=== PATIENT | female | born 1935 | race Caucasian/White ===

== ENCOUNTER → 2016-10-05 | Outpatient (CLI) | payer MEDICARE ==
--- NOTE | 2016-10-05 13:34 | XR ---
EXAMINATION TYPE: XR hand complete RT DATE OF EXAM: 10/05/2016 CLINICAL HISTORY: pain TECHNIQUE: Frontal, lateral and oblique images of the right hand are obtained. COMPARISON: None. FINDINGS: There is no acute fracture/dislocation evident. The joint spaces appear mildly narrowed. T he overlying soft tissue appears unremarkable. Healed fractures of the distal radius and ulnar styloi d process. IMPRESSION: There is no acute fracture or dislocation ICD 10 NO FRACTURE, INITIAL EVALUATION
--- NOTE | 2016-10-05 14:03 | CT ---
EXAMINATION TYPE: CT tmj maxillofacial wo con DATE OF EXAM: 10/05/2016 COMPARISON: NONE HISTORY: Rt TMJ pain CT DLP: 234.4 mGycm Automated exposure control for dose reduction was used. Unenhanced CT of the TMJs was performed with bone and soft tissue window settings. Images were obtain ed during open and closed mouth maneuvers. FINDINGS: Right TMJ: There is subchondral cystic degenerative change involving the mandibular condyle with mild spurring seen as well. There is normal positioning of the mandibular condyle within the mandibular fossa at closed mouth positioning. Upon open-mouth positioning there is a normal appearing anterior t ranslation of the mandibular condyle in the region of the articular eminence however there is evidenc e for narrowing and spurring. The disc is poorly visualized and I suspect underlying disc pathology. Left TMJ: No evidence for significant degenerative changes at this time. No evidence for osseous lesi on or spurring. The disc appears to be well positioned at both open and closed mouth views. Normal tr anslation of the mandibular condyle upon opening mouth view. IMPRESSION: 1. OSTEOARTHRITIS WITH SUBCHONDRAL CYST FORMATION AND SPURRING INVOLVING THE RIGHT MANDIBULAR CONDYLE WITH A POORLY VISUALIZED DISC SUSPICIOUS FOR UNDERLYING DISC PATHOLOGY.
== END | disposition home or self-care (01) ==
LOC: RADXRMAIN 10:16
PROVIDERS: ATTEND Family Medicine
DX: M26.69 Other specified disorders of temporomandibular joint (principal); M79.641 Pain in right hand
CPT/HCPCS: 70486

== ENCOUNTER 2018-01-22 11:24 | Emergency (ER) | payer MEDICARE, OTHER ==
[2018-01-22 11:30] VITALS: PULSE 84; TEMP 98
--- NOTE | 2018-01-22 11:52 | ED ---
General Adult HPI - General Chief complaint: Extremity Injury, Lower Stated complaint: IHS-Leg Pain Source: patient Mode of arrival: ambulatory Limitations: no limitations - History of Present Illness Initial comments: Dictation was produced using [employer] dictation software. please excuse any grammatical, word or spelling errors. Chief Complaint: 82-year-old female past medical history of hypertension presents with left knee pain status post fall. History of Present Illness: Is a 82-year-old female who presents after fall. Patient fell yesterday. She tripped over something causing her to fall onto her left side. She states she landed on her hip. Denies any head trauma. No loss of consciousness. Patient has history of right knee total joint replacement. Patient is able to bear weight however has difficulty walking. The ROS documented in this emergency department record has been reviewed and confirmed by me. Those systems with pertinent positive or negative responses have been documented in the HPI. All other systems are other negative and/or noncontributory. - Related Data Home Medications Medication Instructions Recorded Confirmed Benazepril HCl 40 mg PO DAILY 11/26/16 12/01/16 Calcium Magnesium D3 Liq 1 oz PO DAILY 11/26/16 12/01/16 Glucosam/Juan-Msm1/C/Ron/Bosw 1 each PO DAILY 11/26/16 12/01/16 [Glucosamine-Chondroitin Tablet] amLODIPine BESYLATE [Norvasc] 5 mg PO QAM 11/26/16 12/01/16 Previous Rx's Medication Instructions Recorded traMADol HCl [Ultram] 50 mg PO Q4H PRN #30 tab 12/01/16 HYDROcodone/APAP 5-325MG [[place] 1 tab PO Q6HR PRN 3 Days #12 tab 01/22/18 5-325] Allergies Allergy/AdvReac Type Severity Reaction Status Date / Time Bleach (Sodium Hypochlorite) Allergy Rash/Hives Verified 01/22/18 11:25 Review of Systems ROS Statement: Those systems with pertinent positive or pertinent negative responses have been documented in the HPI. ROS Other: All systems not noted in ROS Statement are negative. Past Medical History Past Medical History: Hypertension Additional Past Medical History / Comment(s): hx migraines, amnesia episode yrs ago, rheumatic fever age 10- caused heart murmer, History of Any Multi-Drug Resistant Organisms: None Reported Past Surgical History: Orthopedic Surgery Additional Past Surgical History / Comment(s): left elbow surgery(fx), ORIF rt femur-has so, surgery fx rt kneecap, Past Anesthesia/Blood Transfusion Reactions: Motion Sickness Past Psychological History: No Psychological Hx Reported Smoking Status: Never smoker Past Alcohol Use History: Occasional Past Drug Use History: None Reported - Past Family History Mother Family Medical History: Cancer Sister(s) Family Medical History: Cancer General Exam - General Exam Comments Initial Comments: PHYSICAL EXAM: General Impression: Alert and oriented x3, not in acute distress HEENT: Normocephalic atraumatic, extra-ocular movements intact, pupils equal and reactive to light bilaterally, mucous membranes moist. Cardiovascular: Heart regular rate and rhythm, S1&S2 audible, no murmurs, rubs or gallops Chest: Lungs clear to auscultation bilaterally, no rhonchi, no wheeze, no rales Abdomen: Bowel sounds present, abdomen soft, non-tender, non-distended, no organomegaly Musculoskeletal: Pulses present and equal in all extremities, no peripheral edema, no left leg shortening Motor: Power 5/5 bilaterally, no focal deficits noted Neurological: CN II-XII grossly intact, no focal motor or sensory deficits noted Skin: Intact with no visualized rashes Psych: Normal affect and mood Limitations: no limitations Course Vital Signs 01/22/18 11:27 Temperature 98 F Pulse Rate 84 Respiratory 18 Rate Blood Pressure 161/103 O2 Sat by Pulse 100 Oximetry Medical Decision Making - Medical Decision Making ED course: 82-year-old female chief complaint of knee pain. Patient states she did land on her hip. As upon arrival are within acceptable limits. Her obtained showing no acute processes. Patient ambulated at bedside. Patient reports improvement of her pain symptoms after taking Motrin. This point there is very low clinical suspicion that there is an acute fracture given the patient is able to bear weight. Patient given prescription for [place] when necessary severe pain. She is advised follow-up with primary care physician upon discharge. Patient understandable and agreeable to plan. Disposition Clinical Impression: Knee strain Disposition: HOME SELF-CARE Condition: Fair Instructions: Knee Sprain (ED) Prescriptions: HYDROcodone/APAP 5-325MG [[place] 5-325] 1 tab PO Q6HR PRN 3 Days #12 tab PRN Reason: Severe Pain Is patient prescribed a controlled substance at d/c from ED?: Yes If prescribed controlled substance>3 days was MAPS reviewed?: Prescribed <3 Days Referrals: Naresh Valerio MD [Primary Care Provider] - 1-2 days Time of Disposition: 13:16
--- NOTE | 2018-01-22 13:02 | XR ---
EXAMINATION TYPE: XR Hip LT and AP Pelvis DATE OF EXAM: 01/22/2018 COMPARISON: NONE HISTORY: Fall with left hip pain TECHNIQUE: A single AP view of the pelvis is obtained. Two views of the left hip are obtained. FINDINGS: There is no acute fracture/dislocation evident in the pelvis. The hip and sacroiliac join ts appear symmetric with mild femoral acetabular arthropathy of the bilateral hips. The overlying so ft tissue appears unremarkable. Two views of left hip show no acute fracture or dislocation. No focal lytic or sclerotic lesion seen in the proximal left femur. The overlying soft tissue is unremarkable. Postsurgical changes of the right proximal femur partially visualized. There is generalized osseous demineralization. IMPRESSION: There is no acute fracture or dislocation in the pelvis or left hip. Mild left femoral a cetabular arthropathy and generalized osseous demineralization.
--- NOTE | 2018-01-22 13:03 | XR ---
EXAMINATION TYPE: XR knee complete LT DATE OF EXAM: 01/22/2018 CLINICAL HISTORY: Left knee pain after fall TECHNIQUE: Three views of the left knee are obtained. COMPARISON: None. FINDINGS: There is generalized osseous demineralization seen. There is no acute fracture/dislocation evident in left knee. The tri-compartment joint spaces appear within normal limits. The overlying soft tissue appears unremarkable. IMPRESSION: There is no acute fracture or dislocation in the left knee.
[2018-01-22 13:32] VITALS: BP 142/96; RESP 16
== END 2018-01-22 13:21 | disposition home or self-care (01) ==
LOC: EC 11:24
DX: S86.912A Strain of unspecified muscle(s) and tendon(s) at lower leg level, left leg, initial encounter (principal); I10 Essential (primary) hypertension; Z96.651 Presence of right artificial knee joint; Z79.899 Other long term (current) drug therapy; Z91.048 Other nonmedicinal substance allergy status; W18.09XA Striking against other object with subsequent fall, initial encounter; Y92.69 Other specified industrial and construction area as the place of occurrence of the external cause; Y99.0 Civilian activity done for income or pay
CPT/HCPCS: 73502; 99283

== ENCOUNTER → 2018-01-27 | Outpatient (CLI) | payer MEDICARE ==
--- NOTE | 2018-01-27 18:06 | BD ---
EXAMINATION TYPE: Axial Bone Density DATE OF EXAM: 01/27/2018 CLINICAL HISTORY: 82-year-old female known osteoporosis Height: 59.5 Weight: 105 FRAX RISK QUESTIONS: Alcohol (3 or more units per day): no Family History (Parent hip fracture): no Glucocorticoids (More than 3mos): no (Ex: prednisone, prednisolone, methylprednisolone, dexamethasone, and hydrocortisone). History of Fracture in Adulthood: knee, patella, foot, elbow, femur Secondary Osteoporosis: 1. Type 1 Diabetes: no 2. Hyperthyroidism: no 3. Menopause before 45: yes 4. Malnutrition: no but very slender 5. Chronic liver disease: no Rheumatoid Arthritis: no Current Tobacco Use: no RISK FACTORS HISTORY OF: Hip Fracture (Right/Left): yes When: about 7 years ago History of Wrist Fracture: yes When: about 2016 Surgery to Hip(right): yes When: about 7 years ago Family History of Osteoporosis: unsure Active: somewhat, still works at [employer] Diet low in dairy products/other sources of calcium: unsure Postmenopausal woman: yes Take estrogen and/or progesterone medications: no Lost more than 2 inches in height since high school: yes Frequent falls: no Poor Health: slightly Hyperparathyroidism: no Adrenal Insufficiency: no MEDICATIONS: Prednisone or other steroids: not now Thyroid Medications: no Osteoporosis Medications: no Additional Medications: blood pressure meds, calcium Additional History: EXAM MEASUREMENTS: Bone mineral densitometry was performed using the [employer]. Bone mineral density as measured about the Lumbar spine is: ----- L1-L4(G/cm2): 0.763 T Score Values are as follows: ----- L2: -3.7 ----- L3: -3.8 ----- L4: -3.2 ----- L1-L4: -3.5 Bone mineral density has: Decreased -0.3% since study of: 09/12/2015 Bone mineral density about the L hip (g/cm2): 0.597 T Score values are as follows: -----L Neck: -3.2 -----L Total: -3.2 Bone mineral density has: Decreased -2.4% since study of: 09/12/2015 IMPRESSION: Osteoporosis (T Score less than -2.5). There is increased fracture risk and therapy is usually indicated based on age. Re-Screen 1-2 years. NOTE: T-SCORE=SD OF THE YOUNG ADULT MEAN.
== END | disposition home or self-care (01) ==
LOC: RADBDWWP 10:40
PROVIDERS: ATTEND Family Medicine
DX: M81.0 Age-related osteoporosis without current pathological fracture (principal)
CPT/HCPCS: 77080

== ENCOUNTER → 2018-01-28 | Outpatient (CLI) | payer MEDICARE, OTHER ==
--- NOTE | 2018-01-28 11:03 | US ---
EXAMINATION TYPE: US venous doppler duplex LE LT DATE OF EXAM: 01/28/2018 10:44 AM COMPARISON: NONE CLINICAL HISTORY: M79.662 PAIN IN LT LOWER LEG. Patient fell x 1 week ago. No hx of blood clots. As pirin. No redness. No swelling. SIDE PERFORMED: Left TECHNIQUE: The lower extremity deep venous system is examined utilizing real time linear array sonog pablito with graded compression, doppler sonography and color-flow sonography. VESSELS IMAGED: External Iliac Vein (EIV) Common Femoral Vein Deep Femoral Vein Greater Saphenous Vein * Femoral Vein Popliteal Vein Small Saphenous Vein * Proximal Calf Veins (* superficial vessels) Left Leg: Negative for DVT IMPRESSION: 1. Left lower extremity deep venous ultrasound negative for deep venous thrombosis.
== END | disposition home or self-care (01) ==
LOC: RADUSWWP 10:10
PROVIDERS: ATTEND Nurse Practitioner Family
DX: M79.672 Pain in left foot (principal)

== ENCOUNTER → 2018-08-18 | Outpatient (CLI) | payer MEDICARE, OTHER ==
--- NOTE | 2018-08-18 17:48 | XR ---
EXAMINATION TYPE: XR cervical spine 7 views comp, XR lumbar spine 3 views DATE OF EXAM: 08/18/2018 COMPARISON: None HISTORY: 83 year-old female cervical and lumbar pain FINDINGS: Cervical spine: No predental space widening or prevertebral soft tissue swelling. Facet arthropathy throughout. Scatt ered uncovertebral joint arthropathy as well. No significant bony neuroforaminal narrowing on either side. Limited odontoid view. Alignment is maintained when correlating with the swimmer's view. Lumbar spine: Degenerative dextroconvex curvature. Hypertrophic facet arthropathy especially in the lower lumbar sp ine. Vertebral body heights are preserved. Grade 1 anterolisthesis at L4-L5 and L5-S1. Mild to modera te disc interspace narrowing at these levels as well. IMPRESSION: 1. Cervical spine: Scattered facet and uncovertebral joint arthropathy. No malalignment or significan t bony neuroforaminal narrowing. 2. Lumbar spine: Degenerative dextroconvex curvature. Hypertrophic facet arthropathy lower lumbar spi ne with grade 1 anterolisthesis at L4-L5 and L5-S1. Associated mild to moderate degenerative disc dis ease at these levels.
== END | disposition home or self-care (01) ==
LOC: RADXRMAIN 13:35
PROVIDERS: ATTEND Family Medicine
DX: M43.17 Spondylolisthesis, lumbosacral region (principal); M50.30 Other cervical disc degeneration, unspecified cervical region; M43.8X6 Other specified deforming dorsopathies, lumbar region; M46.96 Unspecified inflammatory spondylopathy, lumbar region
CPT/HCPCS: 72050; 72100

== ENCOUNTER → 2018-11-15 | Outpatient (CLI) | payer MEDICARE, OTHER ==
--- NOTE | 2018-11-15 21:56 | CT ---
EXAMINATION TYPE: CT ChestAbdPelvis wo con DATE OF EXAM: 11/15/2018 COMPARISON: None HISTORY: 83-year-old female with abdominal pain and shortness of breath. 10lb weight loss in last 2 weeks. TECHNIQUE: Contiguous axial scanning of the chest, abdomen, and pelvis without IV contrast. Coronal a nd sagittal reconstructions performed. CT DLP: 725 mGycm Automated exposure control for dose reduction was used. FINDINGS: Lack of IV contrast limits assessment of the mediastinal, hilar, and vascular structures in the chest . In further limits assessment of the solid abdominal viscera, lymph nodes, and vascular structures in the abdomen and pelvis. CHEST: Heart normal size without pericardial effusion. Mild aortic valvular calcifications are present. Ascending aorta mildly aneurysmal at 4.0 cm. Conventional arch vessel branching anatomy with mild to moderate atherosclerotic arch calcifications. No thoracic lymphadenopathy by CT size criteria. Mild biapical pleural-parenchymal scarring. 4 mm posterior right upper lobe pulmonary nodule axial im age 15. Some patchy subpleural atelectasis or scarring at the bilateral lung bases. No consolidation or pleural effusion. ABDOMEN: Noncontrast appearance of the liver shows a couple tiny subcentimeter hypodensities in the inferior r ight liver lobe too small for accurate CT characterization, likely tiny cysts. A few small layering c alculi measuring up to 5 mm within the gallbladder. Adrenal glands, kidneys, and pancreas appear within normal limits. Numerous calcified granulomas within the spleen. Limited assessment of abdominal lymph nodes due to lack of contrast and limited intra-abdominal fat. Tiny fatty umbilical hernia. Normal appendix. Scattered mild to moderate stool. Sigmoid diverticulosis. Pelvis: Bladder urine distended. Uterus appears small compatible with postmenopausal state. Pelvic phlebolith s. No abnormal fluid collection are obvious pelvic lymphadenopathy allowing for noncontrast technique . Bones: Intramedullary nail partially visualized within the right femoral shaft. Degenerative changes at the SI joints. Hypertrophic facet arthropathy mid to lower lumbar spine with grade 1, nearly grade 2 ante rolisthesis at L4-L5 and L5-S1. [facility] within the mid to lower thoracic spine. IMPRESSION: 1. A 4 MM RIGHT UPPER LOBE PULMONARY NODULE CAN BE REASSESSED IN 6 MONTHS. 2. MILD ANEURYSM ASCENDING AORTA AND 4.0 CM, CHOLELITHIASIS, PRIOR GRANULOMATOUS DISEASE, TINY FATTY UMBILICAL HERNIA, MILD TO MODERATE STOOL, AND SIGMOID DIVERTICULOSIS. 3. LACK OF IV CONTRAST DECREASES SENSITIVITY AND LIMITS THE EXAMINATION. 4. HYPERTROPHIC FACET ARTHROPATHY LUMBAR SPINE WITH GRADE 1, NEARLY GRADE 2 ANTEROLISTHESIS AT L4-L5 AND L5-S1. DISH.
== END | disposition home or self-care (01) ==
LOC: RADCTMAIN 13:06
PROVIDERS: ATTEND Family Medicine
DX: I71.2 Thoracic aortic aneurysm, without rupture (principal); K80.20 Calculus of gallbladder without cholecystitis without obstruction; D71 Functional disorders of polymorphonuclear neutrophils; K42.9 Umbilical hernia without obstruction or gangrene; K57.30 Diverticulosis of large intestine without perforation or abscess without bleeding; R91.1 Solitary pulmonary nodule
CPT/HCPCS: 71250; 74176

== ENCOUNTER → 2019-04-12 | Outpatient (CLI) | payer MEDICARE, OTHER ==
[2019-04-12 15:09] LABS: African American GFR (CKD) >90 (>60 ml/min/1.73 sqM); Blood Urea Nitrogen 14 mg/dL (7-17); Non-African American GFR(CKD) 88 (>60 ml/min/1.73 sqM)
--- NOTE | 2019-04-13 04:42 | CT ---
EXAMINATION TYPE: CT chest abdomen w con DATE OF EXAM: 04/12/2019 COMPARISON: 11/15/2018 HISTORY: 83-year-old female cholelithiasis, shortness of breath, hx of lung ca TECHNIQUE: Contiguous axial scanning of the chest and abdomen following administration of 100 ml Isov ue 300 IV contrast. Delayed images through the kidneys and coronal/sagittal reconstructions performe d. CT DLP: 347.9 mGycm Automated exposure control for dose reduction was used. FINDINGS: CHEST: Heart upper limits of normal in size without pericardial effusion. There is prominent motion at the base of the heart limiting accurate assessment of the aortic root an d lower ascending aorta. Upper ascending aorta measures 3.8 cm. Conventional arch vessel branching an atomy. No thoracic lymphadenopathy by CT size criteria. Mild biapical pleural-parenchymal scarring. A 4 mm right upper lobe pulmonary nodule is unchanged for 5 months. An additional one-year follow-up can be performed. Stable scarring at the lung bases with some architectural distortion and mild traction bronchiolectas is at the medial right base. ABDOMEN: A couple stable subcentimeter, hypodensities within liver, one in the anterior mid liver, axial image 58, and one in the inferior right liver lobe, likely small cysts. Some focal fat along the anterior falciform ligament. No biliary ductal dilatation. Portal venous system is patent. No abnormal gallbladder distention. A small 6 mm gallstone is noted. Adrenal glands within normal limits. Possible subtle 7 mm hypodensity within the posterior pancreatic body, axial image 64 should be reass essed at short interval follow-up. A subcentimeter cortical hypodensity in each kidney measuring 1.1 cm on the left and 8 mm on the righ t are too small for accurate CT characterization, likely small cortical cysts. Multiple calcified granulomas redemonstrated within the spleen. Mild atherosclerotic calcifications infrarenal abdominal aorta. Scattered mild to moderate stool in the visualized colon. Some prominent fluid-filled small bowel loo ps in the visualized mid and lower abdomen are nonspecific. No mesenteric or retroperitoneal lymphadenopathy identified. BONES: Advanced hypertrophic facet arthropathy redemonstrated mid and lower lumbar spine with grade 1, nearl y grade 2 anterolisthesis at L4-L5 and L5-S1. [facility] within the mid to lower thoracic spine. IMPRESSION: 1. Prominent cardiac motion at the base of the heart limiting assessment of the aortic root and lower ascending aorta. The largest possible diameter is 4.3 cm (measured 4.0 cm, previously) but this is l ikely inaccurate. The upper ascending aorta measures ectatic at 3.8 cm. 2. A 4 mm right upper lobe pulmonary nodule, stable for 5 months. An additional one-year follow-up ca n be performed. Stable scarring and volume loss at the right greater than left lung bases. 3. 3 - 6 month follow-up contrast enhanced CT recommended for a possible subtle 7 mm hypodensity in t he posterior pancreatic body in order to exclude the possibility of a small early solid lesion. 4. Cholelithiasis and prior granulomatous disease affecting the spleen.
== END | disposition home or self-care (01) ==
LOC: RADCTMAIN 14:21
PROVIDERS: ATTEND Family Medicine
DX: I77.811 Abdominal aortic ectasia (principal); K80.20 Calculus of gallbladder without cholecystitis without obstruction; R91.1 Solitary pulmonary nodule
CPT/HCPCS: 82565; 84520; 71260; 74160; 36415; Q9967

== ENCOUNTER → 2019-05-04 | Outpatient (CLI) | payer MEDICARE ==
[~2019-05-04] MED LIST: REGADENOSON 0.4 MG/5 ML SYRINGE IV ONE
--- NOTE | 2019-05-04 11:10 | NM ---
EXAMINATION TYPE: NM stress lexiscan cardiolite DATE OF EXAM: 05/04/2019 COMPARISON: NONE HISTORY: History of hypertension and rheumatoid fever with chest pain and palpitations. TECHNIQUE: After the intravenous administration of 10.86 mCi Tc 99m Sestamibi - Cardiolite resting S PECT images acquired 45 minutes post injection. The patient received 0.4mg Lexiscan, 24.6 mCi Tc 99m Sestamibi - Stress images obtained [address] injection FINDINGS: Review of stress and rest SPECT images demonstrates no distinct perfusion abnormality. Gated analysi s shows normal wall motion with an estimated left ventricular ejection fraction of 62 % during stress imaging. IMPRESSION: No scintigraphic evidence for reversible ischemia.
--- NOTE | 2019-05-04 11:28 | EST ---
EXERCISE STRESS AGE: 63 SEX: F HT: 62" WT: 100 PROTOCOL: Lexiscan Cardiolite Stress Test HEART RATE REST: 67 BLOOD PRESSURE REST: 160/95 MAXIMUM HEART RATE ACHIEVED: 102 MAXIMUM BLOOD PRESSURE: 160/95 INDICATIONS: Abnormal EKG CLINICAL INFORMATION: Baseline EKG shows normal sinus rhythm, normal axis, normal intervals. Patient was given intravenous Lexiscan as per protocol. Did not have chest pain are diagnostic ST- segment depression. CONCLUSION: 1. Negative stress test by EKG criteria. 2. Cardiolite portion of the stress test will be reported separately. next is a stress test on marjorie Briseno [id number] baseline EKG indication difficulty in breathing. Baseline EKG shows sinus rhythm, normal axis, normal intervals. Patient was given intravenous Lexiscan as per protocol. Did not have chest pain or diagnostic ST-segment depression conclusions negative stress test by EKG criteria #2 Cardiolite portion of the stress test will be reported separately next is a stress test and Dione. STAGE: [place] [id number] indication chest pain baseline EKG shows sinus rhythm, normal axis, normal intervals. Patient exercised on Won protocol for a total of 9 minutes achieving 10 METS 92% of predicted maximal heart rate without chest pain or diagnostic ST-segment depression conclusions good exercise tolerance #2- stress test by EKG criteria. MMODL / IJN: [id number] /
== END | disposition home or self-care (01) ==
LOC: RADNMMAIN 08:13
PROVIDERS: ATTEND Family Medicine
DX: R94.31 Abnormal electrocardiogram [ECG] [EKG] (principal)
CPT/HCPCS: 93017; 78452; A9500; J2785

== ENCOUNTER → 2019-08-28 | Outpatient (CLI) | payer MEDICARE ==
--- NOTE | 2019-08-29 10:05 | MR ---
MR pancreas with and without contrast HISTORY: Pancreatic lesion, K 86.2 Multiplanar multisequence and postcontrast images through the pancreas following 5 cc Gadavist IV. Correlation to CT chest abdomen 04/12/2019 At the level of the pancreatic body and site of the previously described lesion, there may be some fo ghazala atrophy present. There is suggestion of a small cystic focus at this level which could possibly c ommunicate with the pancreatic duct, additional T2 bright foci are present along the body of the panc reas extending towards the tail. Pancreatic duct is not dilated. Cystic foci are subcentimeter in siz e. No abnormal enhancement is evident following contrast administration. There is no retroperitoneal adenopathy. Aorta shows a normal caliber. Cortical cyst associated with t he kidneys. Liver shows probable cystic foci along anterior margin of the left lobe, right lobe which are subcentimeter in size. Gallbladder is showing dependent foci of low signal on T2-weighted images .. Spleen is unremarkable. The calcification seen on CT are not well delineated on MRI consistent wit h old granulomatous disease. Lung bases are unremarkable. No evident ascites. IMPRESSION: Findings in the pancreas may represent IPMN, intraductal papillary mucinous neoplasm, sta ble. Follow-up could be performed to assess for stability.
== END | disposition home or self-care (01) ==
LOC: RADMRIMAIN 17:27
PROVIDERS: ATTEND Family Medicine
DX: K86.2 Cyst of pancreas (principal)
CPT/HCPCS: 74183; A9585

== ENCOUNTER → 2020-01-22 | Outpatient (CLI) | payer MEDICARE ==
--- NOTE | 2020-01-22 19:35 | MR ---
MR angiogram of the chest with and without contrast HISTORY: I 71.2, thoracic aortic aneurysm Multiplanar multisequence and postcontrast images obtained to the chest following 4.5 cc Gadavist IV. 3-dimensional reconstructions performed on an alternate workstation. Correlation CT chest 04/12/2019 There is a spinal curvature present. 3 super aortic branch vessels are present. Aorta is patent. No e vident dissection. Ascending aorta measures approximately 3.8 cm, proximal descending aorta measures approximately 2.5 cm, the aorta at the level of the hiatus measures approximately 2.5 cm. No evident adenopathy or pleural effusion. IMPRESSION: Aorta shows a stable diameter.
== END | disposition home or self-care (01) ==
LOC: RADMRIMAIN 12:32
PROVIDERS: ATTEND Family Medicine
DX: I71.2 Thoracic aortic aneurysm, without rupture (principal)
CPT/HCPCS: C8911; A9585; 71555

== ENCOUNTER → 2020-02-21 | Outpatient (CLI) | payer MEDICARE ==
--- NOTE | 2020-02-22 06:47 | MR ---
EXAMINATION TYPE: MR pancreas wo/w con DATE OF EXAM: 02/21/2020 COMPARISON: Prior MRI pancreas August 28, 2019. Prior CTs abdomen April 12, 2019 and November 15 HISTORY: Cyst on pancreas CONTRAST: Standard multiplanar, multisequence MRI departmental protocol utilizing 4.5 mL intravenous Gadavist g adolinium contrast. Exam performed of the abdomen focusing on the pancreas. FINDINGS: Exam slightly suboptimal as patient has difficulty holding breath. Pancreas: Persistent 5 x 2 mm tiny cyst or cystic lesion in the mid body pancreas axial image 21 seri es 601 and coronal image 9 series 301 unchanged from prior MRI. Remainder pancreas shows no concernin g new or enlarging solid or cystic mass. Pancreatic duct is visualized and appears within normal limi ts. No surrounding inflammatory change. Other: Small dependent gallstones redemonstrated. Subcentimeter thin-walled cyst upper pole right kid joy redemonstrated. Slightly larger greater than 1 cm thin-walled cyst upper pole of the left kidney redemonstrated laterally. Calcifications throughout the spleen seen better on CT versus MRI. Both adr enal glands remain within normal limits. Occasional tiny thin-walled cysts scattered throughout the l iver redemonstrated. No suspicious bowel dilatation. No intra-abdominal ascites. Osseous structures a re intact. IMPRESSION: Stable subcentimeter thin-walled cyst or cystic lesion in the pancreatic body. Lesion otto ost certainly benign and does not need further follow-up in patient of this age.
== END | disposition home or self-care (01) ==
LOC: RADMRIMAIN 17:00
PROVIDERS: ATTEND Family Medicine
DX: K86.2 Cyst of pancreas (principal)
CPT/HCPCS: 74183; A9585

== ENCOUNTER 2020-05-09 13:56 | Emergency (ER) | payer MEDICARE ==
[2020-05-09 14:40] VITALS: RESP 18; TEMP 97.7
[2020-05-09] MEDS ORDERED: AMPICILLIN-SULBACTAM 3 GM in SODIUM CHLORIDE 0.9% 100 ML IVPB STA (15:31)
[2020-05-09] MEDS ORDERED: RABIES IMMUNE GLOB 300 UNIT/ML 1 ML VIAL IM ONE (15:31)
--- NOTE | 2020-05-09 15:34 | ED ---
Animal Bite HPI - General Source: patient Mode of arrival: ambulatory Limitations: no limitations <Hattie Allen - Last Filed: 05/09/20 19:13> <Emilia Castro - Last Filed: 05/15/20 14:20> - General Chief Complaint: Animal Bite Stated Complaint: Cat bite Time Seen by Provider: 05/09/20 15:06 - History of Present Illness Initial Comments: 84-year-old female presenting today for chief complaint of cat bite that o ccurred 05/07/2020. Patient states that she was feeding a stray K That is usually 90s but she attempted to pick it up and it bit her on her right wrist/thumb. Patient states it scratched her left lower leg as well. Patient states that the next day she was evaluated at a clinic and was given a tetanus vaccine and started on Augmentin patient has taken a total of 2 doses but was told if redness dveloped to come to the ER. Patient states she noticed redness up to midforearm. Patient denies any fevers chills or general malaise or any constitutional symptoms patient states she feels fine. Patient states she isnt overly concerned of rabies but "doesnt know much about it". Patent states she is not able to test or quarantine the animal. (Hattie Allen) - Related Data Home Medications Medication Instructions Recorded Confirmed Benazepril HCl 40 mg PO DAILY 11/26/16 12/01/16 Calcium Magnesium D3 Liq 1 oz PO DAILY 11/26/16 12/01/16 Glucosam/Juan-Msm1/C/Ron/Bosw 1 each PO DAILY 11/26/16 12/01/16 [Glucosamine-Chondroitin Tablet] amLODIPine BESYLATE [Norvasc] 5 mg PO QAM 11/26/16 12/01/16 Previous Rx's Medication Instructions Recorded traMADol HCl [Ultram] 50 mg PO Q4H PRN #30 tab 12/01/16 HYDROcodone/APAP 5-325MG [Prichard 1 tab PO Q6HR PRN 3 Days #12 tab 01/22/18 5-325] Allergies Allergy/AdvReac Type Severity Reaction Status Date / Time Bleach (Sodium Hypochlorite) Allergy Rash/Hives Verified 05/09/20 14:41 Review of Systems ROS Other: All systems not noted in ROS Statement are negative. <Hattie Allen - Last Filed: 05/09/20 19:13> ROS Other: All systems not noted in ROS Statement are negative. <Emilia Castro - Last Filed: 05/15/20 14:20> ROS Statement: Those systems with pertinent positive or pertinent negative responses have been documented in the HPI. Past Medical History Past Medical History: Hypertension Additional Past Medical History / Comment(s): hx migraines, amnesia episode yrs ago, rheumatic fever age 10- caused heart murmer, History of Any Multi-Drug Resistant Organisms: None Reported Past Surgical History: Orthopedic Surgery Additional Past Surgical History / Comment(s): left elbow surgery(fx), ORIF rt femur-has so, surgery fx rt kneecap, Past Anesthesia/Blood Transfusion Reactions: Motion Sickness Past Psychological History: No Psychological Hx Reported Smoking Status: Never smoker Past Alcohol Use History: Occasional Past Drug Use History: None Reported - Past Family History Mother Family Medical History: Cancer Sister(s) Family Medical History: Cancer <Hattie Allen - Last Filed: 05/09/20 19:13> General Exam Limitations: no limitations <Hattie Allen - Last Filed: 05/09/20 19:13> - General Exam Comments Initial Comments: General: The patient is awake and alert, in no distress Eye: Pupils are equal, round and reactive to light, extra-ocular movements are intact. No nystagmus. There is normal conjunctiva bilaterally. No signs of icterus. Ears, nose, mouth and throat: There are moist mucous membranes and no oral lesions. Neck: The neck is supple, there is no tenderness or JVD. Cardiovascular: There is a regular rate and rhythm. No murmur, rub or gallop is appreciated. Respiratory: Lungs are clear to auscultation, respirations are non-labored, breath sounds are equal. No wheezes, stridor, rales, or rhonchi. Musculoskeletal: Normal ROM, no tenderness. Strength 5/5. Sensation intact. Pulses equal bilaterally 2+. Neurological: A&O x 3. CN II-XII intact, There are no obvious motor or sensory deficits. Coordination appears grossly intact. Speech is normal. Skin: Skin is warm and dry and no rashes or lesions. 3-4 scratches superficial posterior left leg, 2 anterior danielle, and 2 scratched distal left forearm. 2 punctures right hand (near middle proximal hand, palmar aspect at base of thenar eminence) no draingae but surrounding redness of right hand lesions extending to proximal/mid forearm. Psychiatric: Cooperative, appropriate mood & affect, normal judgment. (Hattie Allen) Course Vital Signs 05/09/20 05/09/20 14:37 17:36 Temperature 97.7 F Pulse Rate 74 81 Respiratory 18 18 Rate Blood Pressure 144/87 138/85 O2 Sat by Pulse 998 H 98 Oximetry Medical Decision Making - Lab Data Result diagrams: 05/09/20 16:04 05/09/20 16:04 <Hattie Allen - Last Filed: 05/09/20 19:13> - Lab Data Result diagrams: 05/09/20 16:04 05/09/20 16:04 <Emilia Castro - Last Filed: 05/15/20 14:20> - Medical Decision Making Labs stable. Redness outlined. mid at this time. no flexor tendosynovitis signs. patient given 1 dose of sulbactum/ampicillin. patient will be instructed to continue to augmentin and return for spreading of the redness, increasing pain or drainage/fevers. patient is aware of high failure of outpatient abx with cat bite and high risk of infection. discussed sepsis and consequences of untreated or worsening infection patient verbalized understanding and wants to trial abx otupatient for additional day. patient educated on rabies as it was a stray cat. she would treatment. injected around 3cc between two punctures of right hand, as much as was tolerated, remaining immunoglobin placed IM. [facility] after being evaluated by attending Dr. Parra who is agreeable to care plan discharge. To do Bactrim and Tylenol and ibuprofen was discussed. (Hattie Allen) I was available for consultation in the emergency department. The history and physical exam were done by the midlevel provider. I was consulted for this patients care. I reviewed the case with the midlevel provider and based on their presentation of the patient, I agree with the assessment, medical decision making and plan of care as documented. Chart was dictated using [employer] dictation software. Attempts were made to correct any dictation errors however some typographical errors may persist. Patient was seen during a national state of emergency due to the Covid-19 pandemic. (Emilia Castro) - Lab Data Lab Results 05/09/20 05/09/20 Range/Units 16:04 16:04 WBC 5.8 (3.8-10.6) k/uL RBC 4.45 (3.80-5.40) m/uL Hgb 12.3 (11.4-16.0) gm/dL Hct 37.1 (34.0-46.0) % MCV 83.3 (80.0-100.0) fL MCH 27.6 (25.0-35.0) pg MCHC 33.2 (31.0-37.0) g/dL RDW 14.9 (11.5-15.5) % Plt Count 208 (150-450) k/uL MPV 8.0 Neutrophils % 68 % Lymphocytes % 18 % Monocytes % 10 % Eosinophils % 2 % Basophils % 0 % Neutrophils # 3.9 (1.3-7.7) k/uL Lymphocytes # 1.0 (1.0-4.8) k/uL Monocytes # 0.6 (0-1.0) k/uL Eosinophils # 0.1 (0-0.7) k/uL Basophils # 0.0 (0-0.2) k/uL Sodium 137 (137-145) mmol/L Potassium 4.5 (3.5-5.1) mmol/L Chloride 105 (98-107) mmol/L Carbon Dioxide 25 (22-30) mmol/L Anion Gap 7 mmol/L BUN 12 (7-17) mg/dL Creatinine 0.46 L (0.52-1.04) mg/dL Est GFR (CKD-EPI)AfAm >90 (>60 ml/min/1.73 sqM) Est GFR (CKD-EPI)NonAf >90 (>60 ml/min/1.73 sqM) Glucose 89 (74-99) mg/dL Calcium 9.5 (8.4-10.2) mg/dL Disposition Is patient prescribed a controlled substance at d/c from ED?: No Time of Disposition: 17:10 <Hattie Allen - Last Filed: 05/09/20 19:13> <Emilia Castro - Last Filed: 05/15/20 14:20> Clinical Impression: Cellulitis, Cat bite of right hand Disposition: HOME SELF-CARE Instructions (If sedation given, give patient instructions): Animal Bite (ED) Additional Instructions: Please use medication as discussed-CONTINUE AUGMENTIN. Please follow-up with family doctor TOMORROW-RETURN TO ER IF REDNESS SPREADS DISCUSSED. Please return to emergency room if the symptoms increase or worsen or for any other concerns. Referrals: Naresh Valerio MD [Primary Care Provider] - 1-2 days
[2020-05-09] MEDS ORDERED: RABIES VACCINE (PCEC) 2.5 UNIT KIT IM ONE (15:45)
[2020-05-09 16:29] LABS: Basophils % (A) 0 %; Eosinophils # (A) 0.1 k/uL (0-0.7); Eosinophils % (A) 2 %; HCT 37.1 % (34.0-46.0); HGB 12.3 gm/dL (11.4-16.0); Lymphocytes % (A) 18 %; MCH 27.6 pg (25.0-35.0); MCHC 33.2 g/dL (31.0-37.0); MCV 83.3 fL (80.0-100.0); Monocytes # (A) 0.6 k/uL (0-1.0); Monocytes % (A) 10 %; Neutrophils # (A) 3.9 k/uL (1.3-7.7); Neutrophils % (A) 68 %; Platelet Count 208 k/uL (150-450); RBC 4.45 m/uL (3.80-5.40); RDW 14.9 % (11.5-15.5); WBC 5.8 k/uL (3.8-10.6)
[2020-05-09 16:52] LABS: African American GFR (CKD) >90 (>60 ml/min/1.73 sqM); Anion Gap 7 mmol/L; Blood Urea Nitrogen 12 mg/dL (7-17); Calcium 9.5 mg/dL (8.4-10.2); Carbon Dioxide 25 mmol/L (22-30); Chloride 105 mmol/L (98-107); Glucose 89 mg/dL (74-99); Non-African American GFR(CKD) >90 (>60 ml/min/1.73 sqM); Potassium 4.5 mmol/L (3.5-5.1); Sodium 137 mmol/L (137-145)
[2020-05-09 17:36] VITALS: BP 138/85; PULSE 81
== END 2020-05-09 17:36 | disposition home or self-care (01) ==
LOC: EC 13:56
DX: S61.431A Puncture wound without foreign body of right hand, initial encounter (principal); S80.812A Abrasion, left lower leg, initial encounter; S50.812A Abrasion of left forearm, initial encounter; L03.90 Cellulitis, unspecified; I10 Essential (primary) hypertension; Z23 Encounter for immunization; Z79.899 Other long term (current) drug therapy; Z91.048 Other nonmedicinal substance allergy status; Z86.69 Personal history of other diseases of the nervous system and sense organs; W55.01XA Bitten by cat, initial encounter
CPT/HCPCS: 99283 ×2; 96365 ×2; 90471 ×2; 96372 ×2; 36415; 80048; 85025; 90675; 90375; J0295

== ENCOUNTER 2020-06-23 09:35 | Inpatient (IN) | payer MEDICARE ==
[2020-06-23] MEDS ORDERED: MORPHINE SULFATE 4 MG/ML SYRINGE IVP STA (09:57)
[2020-06-23] MEDS ORDERED: ONDANSETRON 4 MG/2 ML VIAL IVP STA (10:00)
--- NOTE | 2020-06-23 10:00 | ED ---
General Adult HPI - General Chief complaint: Fall Stated complaint: Fall Time Seen by Provider: 06/23/20 09:37 Source: patient, EMS, RN notes reviewed Mode of arrival: EMS Limitations: no limitations - History of Present Illness Initial comments: Patient is a pleasant 84-year-old female presenting to the emergency department following a fall. Incident occurred just prior to arrival. Patient was outside and tripped. Patient is unclear exactly why. Patient believes she broke her left hip. Patient is unable to bear weight. Patient did receive fentanyl by EMS in route. Patient states discomfort is tolerable at rest however severe with any movement. No head injury or loss of consciousness. No neck or back pain. No chest pain or dyspnea. No syncope. No abdominal pain. - Related Data Home Medications Medication Instructions Recorded Confirmed Benazepril HCl 40 mg PO DAILY 11/26/16 12/01/16 Calcium Magnesium D3 Liq 1 oz PO DAILY 11/26/16 12/01/16 Glucosam/Juan-Msm1/C/Ron/Bosw 1 each PO DAILY 11/26/16 12/01/16 [Glucosamine-Chondroitin Tablet] amLODIPine BESYLATE [Norvasc] 5 mg PO QAM 11/26/16 12/01/16 Previous Rx's Medication Instructions Recorded traMADol HCl [Ultram] 50 mg PO Q4H PRN #30 tab 12/01/16 HYDROcodone/APAP 5-325MG [Craig 1 tab PO Q6HR PRN 3 Days #12 tab 01/22/18 5-325] Allergies Allergy/AdvReac Type Severity Reaction Status Date / Time Bleach (Sodium Hypochlorite) Allergy Rash/Hives Verified 05/09/20 14:41 Review of Systems ROS Statement: Those systems with pertinent positive or pertinent negative responses have been documented in the HPI. ROS Other: All systems not noted in ROS Statement are negative. Constitutional: Denies: fever Eyes: Denies: eye pain ENT: Denies: ear pain Respiratory: Denies: cough Cardiovascular: Denies: chest pain Endocrine: Denies: fatigue Gastrointestinal: Denies: abdominal pain Genitourinary: Denies: dysuria Musculoskeletal: Reports: as per HPI, arthralgia Skin: Denies: rash Neurological: Denies: headache Past Medical History Past Medical History: Hypertension Additional Past Medical History / Comment(s): hx migraines, amnesia episode yrs ago, rheumatic fever age 10- caused heart murmer, History of Any Multi-Drug Resistant Organisms: None Reported Past Surgical History: Orthopedic Surgery Additional Past Surgical History / Comment(s): left elbow surgery(fx), ORIF rt femur-has so, surgery fx rt kneecap, Past Anesthesia/Blood Transfusion Reactions: Motion Sickness Past Psychological History: No Psychological Hx Reported Smoking Status: Never smoker Past Alcohol Use History: Occasional Past Drug Use History: None Reported - Past Family History Mother Family Medical History: Cancer Sister(s) Family Medical History: Cancer General Exam Limitations: no limitations General appearance: alert, in no apparent distress Head exam: Present: atraumatic, normocephalic Eye exam: Present: normal appearance, PERRL ENT exam: Present: normal oropharynx Neck exam: Present: normal inspection. Absent: tenderness Respiratory exam: Present: normal lung sounds bilaterally Cardiovascular Exam: Present: regular rate, normal rhythm Expanded Peripheral pulses: 2+: Dorsalis Pedis (L) GI/Abdominal exam: Present: soft. Absent: distended, tenderness Extremities exam: Present: tenderness (Moderate to severe tenderness left lateral hip.), other (Decreased range of motion left hip secondary to pain. Distally the extremity is neurovascular intact.) Back exam: Present: normal inspection. Absent: vertebral tenderness Neurological exam: Present: alert. Absent: motor sensory deficit Psychiatric exam: Present: normal affect, normal mood Skin exam: Present: normal color Course Vital Signs 06/23/20 09:36 Temperature 97.7 F Pulse Rate 94 Respiratory 18 Rate Blood Pressure 123/78 O2 Sat by Pulse 99 Oximetry Medical Decision Making - Medical Decision Making Patient reevaluated and updated. Case discussed with Dr. Woodward, who will admit with medical consult. - Radiology Data Interpreted by me: X-ray shows acute IT fracture. Disposition Clinical Impression: Hip fracture, left Disposition: ADMITTED IP TO THIS HOSP Is patient prescribed a controlled substance at d/c from ED?: No Referrals: Naresh Valerio MD [Primary Care Provider] - 1-2 days Decision Time: 10:31
[2020-06-23] MEDS ORDERED: NALOXONE 0.4 MG/ML 1 ML VIAL IV PRN (10:31)
--- NOTE | 2020-06-23 10:33 | XR ---
EXAMINATION TYPE: XR Hip LT and AP Pelvis DATE OF EXAM: 06/23/2020 COMPARISON: NONE HISTORY: Pain TECHNIQUE: A single AP view of the pelvis is obtained. Two views of the left hip are obtained. FINDINGS: There is artifact overlying the pubic rami the AP pelvic view. Postsurgical change involvi ng the right hip bilateral hip arthropathy. Diffuse osteopenia. Arthropathy of the SI joints and dege nerative change of the spine. There is a lucency through the left femoral neck. Somewhat displacement of the lesser trochanter. Deformity involving the pubic rami on the left could be chronic. IMPRESSION: 1. Findings suspicious for left femoral neck fracture. CT scan of the left hip could be obtained for confirmation. 2. Deformity involving the pubic rami on the left most likely chronic..
--- NOTE | 2020-06-23 10:34 | XR ---
EXAMINATION TYPE: XR chest 1V portable DATE OF EXAM: 06/23/2020 COMPARISON: NONE HISTORY: Pain TECHNIQUE: Single frontal view of the chest is obtained. FINDINGS: There is no focal air space opacity, pleural effusion, or pneumothorax seen. The cardiac silhouette size is within normal limits. The osseous structures are intact. Diffuse osteopenia. Art hropathy of the right shoulder. Atherosclerotic change of the aorta. IMPRESSION: No acute process.
[2020-06-23 10:57] LABS: Basophils # (A) 0.1 k/uL (0-0.2); Basophils % (A) 0 %; Eosinophils # (A) 0.1 k/uL (0-0.7); Eosinophils % (A) 1 %; HCT 36.8 % (34.0-46.0); HGB 12.5 gm/dL (11.4-16.0); Lymphocytes # (A) 0.7 k/uL (1.0-4.8); Lymphocytes % (A) 5 %; MCH 27.6 pg (25.0-35.0); MCHC 33.8 g/dL (31.0-37.0); MCV 81.5 fL (80.0-100.0); Mean Platelet Volume 8.5; Monocytes # (A) 0.9 k/uL (0-1.0); Monocytes % (A) 6 %; Neutrophils # (A) 12.9 k/uL (1.3-7.7); Neutrophils % (A) 88 %; Platelet Count 224 k/uL (150-450); RBC 4.52 m/uL (3.80-5.40); RDW 14.1 % (11.5-15.5); WBC 14.7 k/uL (3.8-10.6)
[2020-06-23] MEDS ORDERED: ALPRAZolam 0.25 MG TAB PO PRN (11:19)
[2020-06-23 11:20] LABS: Prothrombin Time 10.3 sec (9.0-12.0)
[2020-06-23 11:21] LABS: Partial Thromboplastin Time 21.1 sec (22.0-30.0)
[2020-06-23 11:28] LABS: ALT 15 U/L (4-34); AST 27 U/L (14-36); African American GFR (CKD) >90 (>60 ml/min/1.73 sqM); Albumin 3.6 g/dL (3.5-5.0); Alkaline Phosphatase 51 U/L (38-126); Anion Gap 9 mmol/L; Blood Urea Nitrogen 16 mg/dL (7-17); Calcium 9.4 mg/dL (8.4-10.2); Carbon Dioxide 22 mmol/L (22-30); Chloride 106 mmol/L (98-107); Glucose 141 mg/dL (74-99); Non-African American GFR(CKD) 85 (>60 ml/min/1.73 sqM); Potassium 4.6 mmol/L (3.5-5.1); Sodium 137 mmol/L (137-145); Total Bilirubin 0.6 mg/dL (0.2-1.3); Total Protein 6.5 g/dL (6.3-8.2)
[2020-06-23] MEDS: SODIUM CHLORIDE 0.9% 1,000 ML IV SCH (11:55)
[2020-06-23] MEDS: HYDROmorphone 0.5 MG/0.5 ML SYRINGE IVP PRN ×2 (11:59→22:22)
--- NOTE | 2020-06-23 12:36 | CONS ---
CONSULTATION HISTORY OF PRESENT ILLNESS: 84-year-old female who presents following a fall. She was outside, she tripped. She broke her left hip, unable to bear weight. Brought in by EMS. No chest pain, shortness of breath, syncope, abdominal pain. MEDICATIONS: Home medicines: Benazepril 40 mg daily, calcium, magnesium 1 ounce daily, glucosamine daily, amlodipine 5 mg daily, tramadol 50 E mg p.r.n., [place] 5/325 p.r.n. ALLERGIES: BLEACH REVIEW OF SYMPTOMS: 14-point review of systems otherwise negative. PAST MEDICAL HISTORY: Migraines, amnesia, rheumatic fever, orthopedic surgery, left elbow surgery, ORIF on the right femur. SOCIAL HISTORY: Nonsmoker. FAMILY HISTORY: Mother with cancer. Sister cancer. PHYSICAL EXAMINATION: Blood pressure 123/78, O2 99. Respiratory 16 to 18, pulse rate 90 to 94, temperature 97.7. White female in no acute distress. Cardiovascular S1, S2. LUNGS: Clear. GI: Soft. HEMATOLOGY: Negative Homans. Musculoskeletal: Tenderness left hip, external rotation, left hip, unable to move her hip. Psych: Fair mood and affect. NEUROLOGIC: Alert and orient x3. ASSESSMENT: 1. Left hip fracture. 2. Hypertension. Continue current treatments. Possible surgery. Do an EKG to clear her for surgery and she will probably end up having surgery on her left hip. Prognosis is guarded. MMODL / IJN: [id number] /
[2020-06-23] MEDS: HYDROmorphone 1 MG/ML 1 ML SYRINGE IVP PRN (16:06)
[2020-06-24] MEDS: HYDROmorphone 0.5 MG/0.5 ML SYRINGE IVP PRN (05:40)
[2020-06-24] MEDS: lisinopriL 20 MG TAB PO SCH (08:40)
[2020-06-24] MEDS: amLODIPine 5 MG TAB PO SCH (08:40)
[2020-06-24] MEDS: HYDROmorphone 1 MG/ML 1 ML SYRINGE IVP PRN ×3 (08:40→17:12)
--- NOTE | 2020-06-24 12:07 | P.HPOR ---
History of Present Illness H&P Date: 06/24/20 This is an 84-year-old female who is admitted for a left hip fracture. Patient states that she fell at home on 06/23/2020 when she tripped outside. Patient was taken to the emergency room via EMS where x-rays revealed left intertrochanteric hip fracture. Patient states that she does live alone, but has family and friends nearby. Patient states that she normally ambulates without any assistive devices. Patient states that she does have pain in the left hip today. Patient's past medical history significant for migraines and hypertension. Patient denies any fever/chills, numbness, weakness or tingling. Review of Systems See HPI. Past Medical History Past Medical History: Hypertension Additional Past Medical History / Comment(s): hx migraines, amnesia episode yrs ago, rheumatic fever age 10- caused heart murmer, History of Any Multi-Drug Resistant Organisms: None Reported Past Surgical History: Orthopedic Surgery Additional Past Surgical History / Comment(s): left elbow surgery(fx), ORIF rt femur-has so, surgery fx rt kneecap, Past Anesthesia/Blood Transfusion Reactions: Motion Sickness Past Psychological History: No Psychological Hx Reported Smoking Status: Never smoker Past Alcohol Use History: Occasional Additional Past Alcohol Use History / Comment(s): 1 tc nightly Past Drug Use History: None Reported - Past Family History Mother Family Medical History: Cancer Sister(s) Family Medical History: Cancer Medications and Allergies Home Medications Medication Instructions Recorded Confirmed Type amLODIPine BESYLATE [Norvasc] 5 mg PO DAILY 11/26/16 06/23/20 History ALPRAZolam [Xanax] 0.25 mg PO HS PRN 06/23/20 06/23/20 History Benazepril HCl [Lotensin] 20 mg PO DAILY 06/23/20 06/23/20 History Ibuprofen [Motrin] 800 mg PO DAILY PRN 06/23/20 06/23/20 History Allergies Allergy/AdvReac Type Severity Reaction Status Date / Time Bleach (Sodium Hypochlorite) Allergy Rash/Hives Verified 06/23/20 11:01 Physical Examination On exam patient is sitting up comfortably in bed in no acute distress. Patient is alert and oriented 3. There is pain and limitation with range of motion of the left hip. Skin is intact. There is no erythema or ecchymosis. Calves are soft and nontender to palpation bilaterally. Sensation intact. Neurovascular status and circulatory status are intact. Exams of the head, neck, bilateral upper extremities and right lower extremity are within normal limits. Results X-rays of the left hip and pelvis dated 06/23/2020 show intertrochanteric left hip fracture. - Labs Labs: H & H 06/23/20 Range/Units 10:43 Hgb 12.5 (11.4-16.0) gm/dL Hct 36.8 (34.0-46.0) % Coagulation 06/23/20 Range/Units 10:43 INR 1.0 (<1.2) Result Diagrams: 06/23/20 10:43 06/23/20 10:43 Assessment and Plan (1) Hip fracture, left Current Visit: Yes Status: Acute Code(s): S72.002A - FRACTURE OF UNSP PART OF NECK OF LEFT FEMUR, INIT SNOMED Code(s): 268284344 (2) Fall Current Visit: Yes Status: Acute Code(s): W19.XXXA - UNSPECIFIED FALL, INITIAL ENCOUNTER SNOMED Code(s): 2420516 Plan: 1. Continue pain control. 2. NPO. 3. Appreciate input from internal medicine. 4. Planning for close reduction and IM nailing of the left hip later today pending medical clearance and patient consent.
[2020-06-24] MEDS ORDERED: IV FLUID CONTINUATION 1,000 ML IV ONE ×2 (12:33)
[2020-06-24] MEDS: SODIUM CHLORIDE 0.9% 1,000 ML IV SCH ×2 (12:47→19:20)
[2020-06-24] MEDS ORDERED: KETAMINE 10 MG/ML 20 ML VIAL ONE (14:13)
[2020-06-24] MEDS ORDERED: PHENYLEPHRINE-0.9% NACL SYG 1,000 MCG/10 ML SYRINGE ONE (14:13)
[2020-06-24] MEDS ORDERED: fentaNYL (PF) 50 MCG/ML 2 ML AMP ONE (14:13)
[2020-06-24] MEDS ORDERED: MIDAZOLAM 2 MG/2 ML VIAL ONE (14:13)
[2020-06-24] MEDS ORDERED: SODIUM CHLORIDE 0.9% 100 ML with ceFAZolin 2,000 MG IV ONE ×2 (14:35)
[2020-06-24] MEDS ORDERED: ceFAZolin 1,000 MG in SODIUM CHLORIDE 0.9% 1,000 ML IRRIGATION ONE (15:08)
[2020-06-24] MEDS: LACTATED RINGERS 1,000 ML IV ONE ×2 (15:18→17:09)
[2020-06-24] MEDS ORDERED: LACTATED RINGERS 1,000 ML IV ONE ×11 (15:18)
--- NOTE | 2020-06-24 15:19 | P.OP ---
Date of Procedure: 06/24/20 Preoperative Diagnosis: Intertrochanteric fracture left hip Postoperative Diagnosis: Intertrochanteric fracture left hip Procedure(s) Performed: Close reduction and intramedullary rodding of the left hip Implants: [employer] Intertan nail 125, 11.5 mm x 18 cm. [employer] Intertan integrated-interlocking lag screw, 90 mm lag screw, 85 mm compression screw. [employer] L-P screw, 5.0 mm x 30 mm. Anesthesia: spinal Surgeon: Feliciano Woodward Fagoter #1: Sneha Vázquez Estimated Blood Loss (ml): 100 Pathology: none sent Condition: stable Disposition: PACU Indications for Procedure: This is an 84-year-old female that slipped and fell at home. She sustained a closed intertrochanteric fracture of her left hip. After discussing the surgical nonsurgical treatment options with her and her family at length, I recommended a close reduction and intramedullary rodding of her left hip. Informed consent was obtained. Operative Findings: The operative findings are consistent with a closed intertrochanteric fracture of the left hip Description of Procedure: The patient was seen in the preoperative area, consent was reviewed, and the operative site was marked with a skin marker. The surgical procedure was discussed at length with both the patient and the family at the bedside. All questions were answered to the best of my ability. The patient was brought to the operating room and placed on the fracture table. Anesthesia was administered by the anesthesia department. 2 g of Ancef were administered intravenously. The patient was placed supine on the fracture table with the fractured extremity in traction boot. The other extremity was placed in a well leg mujica and the bony prominences were well padded. A universal timeout was then performed which confirmed the patient's name, surgical site, ALLERGIES, and consent. Fracture reduction was performed with a traction and abduction maneuver which was confirmed with fluoroscopy, both AP and lateral views.. After reduction was performed, the extremity was then prepped with ChloraPrep solution and draped in the usual sterile fashion. Utilizing fluoroscopy to identify the tip of the greater trochanter, a 3 cm longitudinal incision was made just proximal to the greater trochanter. Incision was carried through the fascia to the tip of the greater trochanter. Utilizing a curved awl, the entry point was created at the tip of the greater trochanter and centralized in the AP and lateral planes. These locations were confirmed by fluoroscopy. A guidewire was then inserted down the medullary canal. Sequentially reaming of the femur was performed to 13 mm distally and 17 mm proximally with the channel reamer. After reaming, appropriate size nail was inserted over the guidewire. The nail was inserted to the appropriate depth and the guidewire was removed. Placement of the so was confirmed with both AP and lateral fluoroscopic views. The lag screw drill sleeve was placed in the jig and a small skin incision was made on the lateral aspect of the leg and the lag screw drill sleeve was locked into the guide. The 3.2 mm guide pin sleeve was inserted through the lag screw drill sleeve down to bone. A 3.2 mm distally threaded guidewire was inserted through the guide pin sleeve. The guidewire was inserted in the desired position in the femoral head, both anterior and posterior. The lag screw length cage was inserted over the guidepin to the back of the lag screw drill sleeve. Lag screw length was then measured from the cage. Next, the 7.0 mm compression screw starter drill was inserted in the lag screw drill sleeve beneath the guidepin. The compression screw starter drill was advanced under power until it abutted the back and of the lag screw drill sleeve. The 7.0 mm compression screw drill was inserted through the lag screw drill sleeve into the hole created by the compression screw starter drill. This was advanced under fluoroscopy to a depth 5 mm less and the measurement taken for the guidepin. The compression screw drill was removed and the antirotation bar was inserted into the same hole. The 3.2 mm guide pin sleeve was then removed from the drill guide. The lag screw drill was then inserted to a depth that was measured by the lag screw gauge. This was done under fluoroscopy. The lag screw was inserted over the guidewire to the appropriate depth using fluoroscopy. Traction was then released. The antirotation bar was then removed and the compression screw was advanced through the lag screw drill sleeve beneath the lag screw. This was advanced to the appropriate compression was achieved. The proximal drill guide was then removed and the distal drill guide was then inserted in the jig. Skin incision was made down to bone and the distal drill guide was then placed. Distal hole was then drilled with a 4.0 mm drill and measured to the appropriate depth. Distal screw was then placed. The entire assembly was then removed and final fluoroscopic x-rays were obtained. The wounds were then irrigated copiously with saline solution. Fascia was closed with 0-Vicryl. Subcutaneous tissues were closed with 2-0 Vicryl and the skin was closed with blu. Sterile dressings were applied. The patient was transported to the recovery room in stable condition. The executive assistant to general counsel LILI Gomes was required due the complexity of surgery the need for skilled surgical rn for positioning draping retraction and fracture reduction.
[2020-06-24] MEDS ORDERED: MAGNESIUM HYDROXIDE 2,400 MG/10 ML CUP PO PRN (15:25)
[2020-06-24] MEDS ORDERED: ONDANSETRON 4 MG/2 ML VIAL IVP PRN (15:25)
[2020-06-24] MEDS ORDERED: HYDROmorphone 0.5 MG/0.5 ML SYRINGE IVP PRN ×2 (15:25)
[2020-06-24] MEDS ORDERED: HYDROmorphone 0.2 MG/1 ML SYRINGE IVP PRN (15:25)
[2020-06-24] MEDS ORDERED: NALOXONE 0.4 MG/ML 1 ML VIAL IV PRN (15:25)
--- NOTE | 2020-06-24 15:36 | FL ---
EXAMINATION TYPE: FL guidance operating room, XR Hip Complete LT DATE OF EXAM: 06/24/2020 CLINICAL HISTORY: Left hip fracture TECHNIQUE: Fluoroscopy. Intraoperative 2 views left hip. COMPARISON: Pelvic and left hip x-ray yesterday. FINDINGS: Fluoroscopic guidance was provided during open reduction internal fixation procedure perfo rmed by Dr. Woodward. A total of 34 seconds of fluoroscopic time was utilized during the procedure a nd 2 spot intraoperative images are acquired. Intraoperative images obtained show intramedullary so with distal transverse fixating screw and 2 la rger femoral neck fixating screws through the intertrochanteric fracture left proximal femur. Satisfa ctory alignment is seen after reduction and fixation on intraoperative images saved. IMPRESSION: As Above.
--- NOTE | 2020-06-24 15:58 | XR ---
EXAMINATION TYPE: XR Hip Limited LT DATE OF EXAM: 06/24/2020 CLINICAL HISTORY: Left hip fracture. TECHNIQUE: Single AP portable view of left hip is obtained immediately postoperatively. COMPARISON: Pelvic and left hip x-ray from yesterday. FINDINGS: Enterprise osseous structures are demineralized. Intramedullary so with single distal transver se fixating screw and 2 larger femoral neck fixating screws through an intertrochanteric fracture lef t proximal femur are identified. Satisfactory positioning after reduction and fixation. Evidence of r ecent surgery of subcutaneous soft tissue swelling and air extending laterally. There are adjacent ve rtical skin blu noted. IMPRESSION: As above.
--- NOTE | 2020-06-24 17:49 | PN ---
PROGRESS NOTE This is an 84-year-old white female who underwent surgery on her left hip. Postoperative hip x-ray shows a screw to the intertrochanteric fracture of left proximal femur, satisfactory positioning. She is sleepy and lethargic. She is saturating 95% on 2 L. Blood pressure 110 to 130s over 80s, respiratory rate 75 to 85, pulses 70s to 90s. ASSESSMENT: 1. Hypertension. 2. Status post hip fixation. Monitor electrolytes. Prognosis guarded. MMODL / IJN: [id number] /
[2020-06-24] MEDS: SENNOSIDES-DOCUSATE SODIUM 1 EACH TAB PO SCH (21:05)
[2020-06-25] MEDS: HYDROmorphone 1 MG/ML 1 ML SYRINGE IVP PRN (02:08)
[2020-06-25 06:23] LABS: Basophils % (A) 0 %; Eosinophils % (A) 0 %; HCT 25.1 % (34.0-46.0); Hypochromasia Slight; Lymphocytes # (A) 0.8 k/uL (1.0-4.8); Lymphocytes % (A) 9 %; MCH 26.8 pg (25.0-35.0); MCHC 31.6 g/dL (31.0-37.0); MCV 84.8 fL (80.0-100.0); Mean Platelet Volume 8.2; Monocytes % (A) 12 %; Neutrophils # (A) 6.5 k/uL (1.3-7.7); Neutrophils % (A) 77 %; Platelet Count 166 k/uL (150-450); RBC 2.96 m/uL (3.80-5.40); RDW 14.3 % (11.5-15.5); WBC 8.4 k/uL (3.8-10.6)
[2020-06-25 06:32] LABS: HGB 7.9 gm/dL (11.4-16.0)
[2020-06-25] MEDS: HYDROcodone/APAP 5-325MG 1 EACH TAB PO PRN ×3 (08:09→19:51)
[2020-06-25] MEDS: amLODIPine 5 MG TAB PO SCH (08:15)
[2020-06-25] MEDS: APIXABAN 2.5 MG TABLET PO SCH ×2 (08:15→19:52)
[2020-06-25] MEDS: lisinopriL 20 MG TAB PO SCH (08:16)
--- NOTE | 2020-06-25 09:06 | P.PN ---
Subjective Progress Note Date: 06/25/20 This is a 84-year-old female who is status post closed reduction and intramedullary rodding of the left femur. This is postoperative day #1 and patient is seen and evaluated at bedside today. Patient states that the left hip is sore, but the pain medication does help to ease her pain. Patient denies any new complaints today. Objective - Vital Signs Vital signs: Vital Signs Temp 98.2 F 06/25/20 04:20 Pulse 72 06/25/20 08:00 Resp 18 06/25/20 04:20 BP 114/70 06/25/20 08:00 Pulse Ox 97 06/25/20 04:20 Intake & Output 06/24/20 06/25/20 06/25/20 18:59 06:59 18:59 Intake Total 1431 Output Total 400 500 Balance 1031 -500 Intake: IV 951 Intake, IV Titration 480 Amount Sodium Chloride 0.9% 1, 480 000 ml @ 60 mls/hr IV . [id number] [facility] Rx#:[id number] Output: Urine 300 500 Estimated Blood Loss 100 Other: Voiding Method Indwelling Catheter Indwelling Catheter - Exam Vital signs are stable. Patient is in no acute distress and is alert and oriented 3. Calf is soft and nontender to palpation. Dressing is clean, dry, and intact. Patient has full foot and ankle motion without pain or difficulty. Sensation intact. Neurovascular status and circulatory status are intact. - Labs CBC & Chem 7: 06/25/20 04:55 06/23/20 10:43 Labs: Abnormal Lab Results - Last 24 Hours (Table) 06/25/20 Range/Units 04:55 RBC 2.96 L (3.80-5.40) m/uL Hgb 7.9 L D (11.4-16.0) gm/dL Hct 25.1 L (34.0-46.0) % Lymphocytes # 0.8 L (1.0-4.8) k/uL Assessment and Plan (1) Hip fracture, left Current Visit: Yes Status: Acute Code(s): S72.002A - FRACTURE OF UNSP PART OF NECK OF LEFT FEMUR, INIT SNOMED Code(s): 974822177 (2) Fall Current Visit: Yes Status: Acute Code(s): W19.XXXA - UNSPECIFIED FALL, INITIAL ENCOUNTER SNOMED Code(s): 8184081 Plan: Continue routine postop care and pain control. Daily dressing changes. Continue anticoagulation with Eliquis. Weightbearing as tolerated with a walker. Physical therapy for mobilization. Appreciate input from medicine. Anticipate discharge home with homecare or discharge to ECF in the next 24-48 hours.
[2020-06-25 11:43] VITALS: RESP 16
[2020-06-25 12:00] LABS: Albumin 3.2 g/dL (3.80-4.90); Albumin/Globulin Ratio 1.6 (1.60-3.17); Anion Gap 6.6 mmol/L (4.00-12.00); Carbon Dioxide 25.4 mmol/L (21.6-31.8); Non-African American GFR(CKD) 88.9 (60.0-200.0); Potassium 4.8 mmol/L (3.5-5.5); Total Bilirubin 0.4 mg/dL (0.3-1.2); Total Protein 5.2 g/dL (6.2-8.2)
[2020-06-25 12:45] LABS: Calcium 8.1 mg/dL (8.7-10.3)
[2020-06-25] MEDS: SODIUM CHLORIDE 0.9% 1,000 ML IV SCH ×2 (15:03→19:57)
--- NOTE | 2020-06-25 15:23 | P.DS ---
Providers Date of admission: 06/23/20 10:31 Expected date of discharge: 06/25/20 Attending physician: Feliciano Woodward Consults: 06/23/20 10:58 Consult Physician Urgent Consulting Provider: Naresh Valerio Reason/Comments: medical care Do you want consulting provider notified?: Yes Primary care physician: Naresh Valerio - Discharge Diagnosis(es) (1) Hip fracture, left Current Visit: Yes Status: Acute (2) Fall Current Visit: Yes Status: Acute Hospital Course: This is an 84-year-old female who sustained a fracture of her left hip after a fall at home on 06/23/2020. [facility]. After discussion and consideration patient elects to proceed with closed reduction and intramedullary rodding of the left hip. The patient is seen preoperatively by Dr. Woodward and medically cleared for surgery by internal medicine. Patient is admitted to [facility] on 06/23/2020 and closed reduction and intramedullary rodding of the left hip is performed on 06/24/2020. The procedure is performed without complication or sequelae. The patient is doing well postoperatively. Labs and vital signs are stable on day of discharge. On day of discharge patient's hip incision is healing well. There is minimal erythema. There is no drainage noted at this time. There is minimal soft tissue swelling to the hip and thigh. Patient has full foot and ankle motion without difficulty or pain. Calf is soft and nontender to palpation. Neurovascular status to the left lower extremity is intact. Patient is discharged home in good condition. Please see med rec for accurate list of home medications. Plan - Discharge Summary New Discharge Prescriptions: New HYDROcodone/APAP 5-325MG [[place] 5-325] 1 - 2 tab PO Q6HR PRN #48 tab PRN Reason: Pain Sennosides [Senokot] 2 tab PO DAILY PRN #60 tablet PRN Reason: Constipation Apixaban [Eliquis] 2.5 mg PO BID 35 Days #70 tab No Action amLODIPine BESYLATE [Norvasc] 5 mg PO DAILY ALPRAZolam [Xanax] 0.25 mg PO HS PRN PRN Reason: Insomnia Ibuprofen [Motrin] 800 mg PO DAILY PRN PRN Reason: Pain Benazepril HCl [Lotensin] 20 mg PO DAILY Discharge Medication List amLODIPine BESYLATE [Norvasc] 5 mg PO DAILY 11/26/16 [History] ALPRAZolam [Xanax] 0.25 mg PO HS PRN 06/23/20 [History] Benazepril HCl [Lotensin] 20 mg PO DAILY 06/23/20 [History] Ibuprofen [Motrin] 800 mg PO DAILY PRN 06/23/20 [History] Apixaban [Eliquis] 2.5 mg PO BID 35 Days #70 tab 06/25/20 [Rx] HYDROcodone/APAP 5-325MG [[place] 5-325] 1 - 2 tab PO Q6HR PRN #48 tab 06/25/20 [Rx] Sennosides [Senokot] 2 tab PO DAILY PRN #60 tablet 06/25/20 [Rx] Follow up Appointment(s)/Referral(s): Naresh Valerio MD [Primary Care Provider] - 1-2 days Feliciano Woodward DO [Doctor of Osteopathic Medicine] - 2 Weeks Activity/Diet/Wound Care/Special Instructions: Weightbearing as tolerated with walker. Daily dressing changes. May shower after 48 hours if no drainage from the incisions. Statples to be removed in 14 days. Please take Eliquis twice daily for 35 days to help prevent blood clots. Recommend use of compression stockings daily until follow up to help prevent swelling and blood clots. May remove at night before sleeping. Please follow-up with [facility] in 2 weeks and call with any questions or concerns, . Discharge Disposition: TRANSFER TO SNF/ECF
--- NOTE | 2020-06-25 18:01 | PN ---
PROGRESS NOTE This is an 84-year-old white female who was admitted to the hospital for left hip fracture. Blood pressure has been controlled. Pain control is under decent control. She had a fracture of the left hip after a fall. PT/OT has been set up. I guess the plan is to go home with physical therapy and follow up with outpatient physical therapy. She is going to take Eliquis for days twice a day. Blood pressure control. Prognosis guarded. MMODL / IJN: [id number] /
[2020-06-25 19:14] VITALS: TEMP 98.3
[2020-06-25] MEDS: SENNOSIDES-DOCUSATE SODIUM 1 EACH TAB PO SCH (19:52)
[2020-06-26] MEDS: SODIUM CHLORIDE 0.9% 1,000 ML IV SCH ×2 (01:15→11:58)
[2020-06-26] MEDS: HYDROcodone/APAP 5-325MG 1 EACH TAB PO PRN ×2 (01:54→09:57)
[2020-06-26 04:12] VITALS: BP 106/70; PULSE 99
[2020-06-26] MEDS: APIXABAN 2.5 MG TABLET PO SCH (08:59)
[2020-06-26] MEDS: amLODIPine 5 MG TAB PO SCH (08:59)
[2020-06-26] MEDS: lisinopriL 20 MG TAB PO SCH (08:59)
--- NOTE | 2020-06-26 11:59 | P.PN ---
Progress Note - Text Progress Note Date: 06/26/20 The patient's discharge was held yesterday with her concern over going to inpatient rehabilitation. She was reevaluated by physical therapy today to agrees that rehabilitation would be the best option for her versus going home. She will be discharged to inpatient rehabilitation today. Please see previous d/c summary and med rec.
--- NOTE | 2020-07-16 06:40 | CDI ---
Documentation Clarification Form Date: 07/16/20 From: Shayna Salgado Phone: Admit Date: 06/23/2020 10:31:00 AM Patient Name: Dione Marin I Visit Number: [id number] Discharge Date: 06/26/2020 01:29:00 PM ATTENTION: The Clinical Documentation Specialists (CDI) and [facility] Coding Staff appreciate your assistance in clarifying documentation. Please respond to the clarification below the line at the bottom and electronically sign. The CDI & [facility] Coding staff will review the response and follow-up if needed. Please note: Queries are made part of the Legal Health Record. If you have any questions, please contact the author of this message via ITS. Dr. Feliciano Woodward, Your patient has an abnormal lab value: Hgb-7.9 & Hct-25.1 on 06/25. Please clarify if there is an additional diagnosis and/or clinical significance related to this value. History/Risk Factors: HTN Clinical indicators: Intertrochanteric fracture left hip with close reduction and intramedullary rodding of the left hip on 06/24. Hgb & Hct on admission 12.5/36.8. Blood loss 100 ml. Treatment: IV fluids Is there an additional diagnosis and/or clinical significance related to the above lab result/information? [ ] Acute blood loss anemia [ ] Anemia, please specify type [ ] No additional diagnosis/Not clinically significant [ ] Other, please specify [ ] Unable to determine No additional diagnosis/Not clinically significant MTDD
== END 2020-06-26 13:29 | DRG 482 ==
LOC: EC 09:35 → 5NMEDONC 10:31
PROVIDERS: ADMIT Orthopaedic Surgery; ATTEND Orthopaedic Surgery
PROC: 0QS736Z Reposition Left Upper Femur with Intramedullary Internal Fixation Device, Percutaneous Approach (ICD-10-PCS; principal; 2020-06-24 14:18)
DX: S72.142A Displaced intertrochanteric fracture of left femur, initial encounter for closed fracture (principal); I10 Essential (primary) hypertension; Z79.899 Other long term (current) drug therapy; Z86.19 Personal history of other infectious and parasitic diseases; Z87.81 Personal history of (healed) traumatic fracture; Z86.69 Personal history of other diseases of the nervous system and sense organs; Z98.890 Other specified postprocedural states; Z91.048 Other nonmedicinal substance allergy status; W01.0XXA Fall on same level from slipping, tripping and stumbling without subsequent striking against object, initial encounter; Y92.007 Garden or yard of unspecified non-institutional (private) residence as the place of occurrence of the external cause; Z80.9 Family history of malignant neoplasm, unspecified
CPT/HCPCS: 71045; 73501; 73502; 80053; 85025; 85610; 85730; 87636; 93005; 96374; 96375; 99285

== ENCOUNTER → 2020-10-11 | Outpatient (CLI) | payer MEDICARE ==
[2020-10-11 12:24] LABS: African American GFR (CKD) >90 (>60 ml/min/1.73 sqM); Blood Urea Nitrogen 17 mg/dL (7-17); Non-African American GFR(CKD) 81 (>60 ml/min/1.73 sqM)
--- NOTE | 2020-10-13 22:46 | CT ---
EXAMINATION TYPE: CT chest w con DATE OF EXAM: 10/11/2020 COMPARISON: 04/12/2019 HISTORY: 85-year-old female Follow up for mass/lump. TECHNIQUE: Contiguous axial scanning of the chest after the administration of 100ml mL of Isovue 300. Coronal/sagittal reconstructions performed. CT DLP: 256mGycm. Automatic exposure control utilized for a dose reduction. FINDINGS: Heart normal size without pericardial effusion. Aortic root borderline ectatic at 3.6 cm. Ascending aorta mildly aneurysmal at 4.0 cm, not significantly changed. Mild atherosclerotic calcifications throughout with conventional arch vessels branching anatomy. Large caliber to the main pulmonary arteries measuring up to 2.8 cm. Correlate to exclude underlying pulmonary arterial hypertension. Prominent but not enlarged 9 mm precarinal lymph node is unchanged. No thoracic lymphadenopathy by CT size criteria. Stable 4 mm posterior right upper lobe pulmonary nodule, axial image 15 suggesting a benign etiology. No consolidation or pleural effusion. Some strandy atelectasis/scarring in the lower lungs redemonst rated. There is some associated mild bronchial atelectasis medial right base. Visualized upper abdomen shows a couple benign subcentimeter hypodensities anterior mid liver too sma ll for accurate CT characterization, likely cysts. Numerous calcified granulomas within the spleen. Bones: Reverse S-shaped curvature/scoliosis of the thoracic spine. Accentuated mid thoracic kyphosis. . IMPRESSION: 1. Stable 4 mm right upper lobe pulmonary nodule back to at least 04/12/2019 compatible with a benign etiology. 2. Borderline ectatic aortic root at 3.6 cm and mildly aneurysmal ascending aorta at 4.0 cm. Not sign ificantly changed from 04/12/2019. 3. Correlate for possible underlying pulmonary arterial hypertension.
== END | disposition home or self-care (01) ==
LOC: RADCTMAIN 11:45
PROVIDERS: ATTEND Family Medicine
DX: R91.1 Solitary pulmonary nodule (principal)
CPT/HCPCS: 82565; 84520; 71260; 36415; Q9967

== ENCOUNTER → 2020-10-16 | Outpatient (CLI) | payer MEDICARE ==
--- NOTE | 2020-10-16 11:46 | XR ---
EXAMINATION TYPE: XR knee complete RT DATE OF EXAM: 10/16/2020 COMPARISON: 06/30/2010 HISTORY: 85-year-old female M15.1, pain after fall 3 days ago. TECHNIQUE: 3 views FINDINGS: There is a moderate joint effusion. Retrograde intramedullary nail with 2 distal interlocking screws, partially visualized. There is 3 mm articular surface step off along the accident of the patella and approximately 1.1 cm of articular surface depression of the posterior half of the lateral tibial christa teau. IMPRESSION: 1. Depressed fracture deformity of the lateral tibial plateau appears to have been present back to th e 06/30/2010 exam suggesting chronic fracture deformity. 2. 3 mm articular surface step-off along the back side of the patella also appears to have been prese nt on 06/30/2010 suggesting a chronic healed fracture deformity. 3. Moderate knee joint effusion is nonspecific. No new displaced fractures seen. If there is signific ant pain or concern for an occult/nondisplaced fracture, recommend short interval follow-up.
== END | disposition home or self-care (01) ==
LOC: RADXRMAIN 11:17
PROVIDERS: ATTEND Family Medicine
DX: M25.461 Effusion, right knee (principal)

== ENCOUNTER → 2020-11-08 | Outpatient (CLI) | payer MEDICARE ==
--- NOTE | 2020-11-08 09:37 | US ---
EXAMINATION TYPE: US liver DATE OF EXAM: 11/08/2020 COMPARISON: CT scan 04/12/2019, MRI pancreas 02/21/2020 CLINICAL HISTORY: Q44.6 Cystic disease of live r. EXAM MEASUREMENTS: Liver Length: 13.3 cm Gallbladder Wall: 0.1 cm CBD: 0.2 cm Right Kidney: 9.1 x 3.9 x 4.9 cm Pancreas: anechoic foci noted in tail measuring 0.5cm Liver: probable liver cysts seen on CT not identified on today's ultrasound Gallbladder: cholelithiasis Evidence for sonographic Mullins's sign: no CBD: wnl Right Kidney: superior cyst measuring 1.0 x 0.8 x 0.8cm IMPRESSION: 1. Previously noted cyst noted within the liver not seen well on today's ultrasound. 2. Small subcentimeter hypoechoic pancreatic nodules most likely cyst suggestive of a cyst or cystic lesion on prior MRI. Measures 5 mm and stable measurements compared to prior MRI. 3. Cholelithiasis
== END | disposition home or self-care (01) ==
LOC: RADUSWWP 08:42
PROVIDERS: ATTEND Family Medicine
DX: K80.20 Calculus of gallbladder without cholecystitis without obstruction (principal)
CPT/HCPCS: 76705

== ENCOUNTER → 2021-01-03 | Outpatient (CLI) | payer MEDICARE ==
[~2021-01-03] MED LIST changes: -REGADENOSON 0.4 MG/5 ML SYRINGE IV ONE; +REGADENOSON 0.4 MG/5 ML SYRINGE IV PRN
--- NOTE | 2021-01-03 12:13 | NM ---
EXAMINATION TYPE: NM stress lexiscan cardiolite DATE OF EXAM: 01/03/2021 COMPARISON: 05/04/2019 HISTORY: 85-year-old female R94.31, abnormal EKG TECHNIQUE: After the intravenous administration of 10.02 mCi Tc 99m Sestamibi - Cardiolite resting S PECT images acquired 45 minutes post injection. The patient received 0.4mg Lexiscan, 25.5 mCi Tc 99m Sestamibi - Stress images obtained [address] injection FINDINGS: Review of stress and rest SPECT images demonstrates no distinct perfusion abnormality. Gated analysi s shows normal wall motion with an estimated left ventricular ejection fraction of 81 %. TID is calc ulated at 1.37, increased. IMPRESSION: No focal reversibility identified. However, TID is increased at 1.37 (normal <1.2). An elevated TID c an be seen in the setting of multivessel, balanced inducible ischemia. Further clinical workup as ind icated.
--- NOTE | 2021-01-03 15:30 | EST ---
EXERCISE STRESS AGE: 85 SEX: F HT: 5'1" WT: 100 lbs. PROTOCOL: Lexiscan STAGE: NA DURATION OF EXERCISE: NA HEART RATE REST: 59 BLOOD PRESSURE REST: 122/81 MAXIMUM HEART RATE ACHIEVED: 99 MAXIMUM BLOOD PRESSURE: 122/81 85% MPHR: 115 100% MPHR: 135 METS: NA INDICATIONS: Abnormal EKG. CLINICAL INFORMATION: Baseline rhythm is sinus mechanism, rate of 59, normal axis and intervals. Normal echocardiogram. Baseline blood pressure 122/81 mmHg. Patient received an injection of Lexiscan. Electrocardiograph monitoring revealed no evidence of diagnostic ischemic ST deviation. Cardiolite was injected per protocol. CONCLUSION: 1. Nondiagnostic electrocardiograph stress testing. 2. Nuclear images will be reported separately. MMODL / IJN: [id number] /
== END | disposition home or self-care (01) ==
LOC: RADNMMAIN 08:08
PROVIDERS: ATTEND Family Medicine
DX: R94.31 Abnormal electrocardiogram [ECG] [EKG] (principal)
CPT/HCPCS: 93017; 78452; A9500; J2785

== ENCOUNTER → 2021-11-21 | Outpatient (CLI) | payer MEDICARE ==
--- NOTE | 2021-11-21 08:15 | MR ---
EXAMINATION TYPE: MR brain wo/w con DATE OF EXAM: 11/21/2021 COMPARISON: NONE HISTORY: TIA, headache TECHNIQUE: Multiplanar, multisequence images of the brain and brainstem is performed without and with IV contras t, utilizing 5 mL intravenous Gadavist . FINDINGS: Diffusion weighted images demonstrate no evidence of a recent infarct or other diffusion ab normality. Mild to moderate ventricular and sulcal prominence. Multiple scattered foci of T2 hyperint ensity throughout the white matter bilaterally. Approximately 60 lesions with more confluent appearan ce of the ventricles. Midline structures demonstrate normal morphology. The craniocervical junction appears within normal limits. Post contrast images demonstrate no abnormal enhancement. The dural venous sinuses appear pa tent. The visualized sinuses are clear and the globes are intact. IMPRESSION: Mild to moderate diffuse cerebral atrophy and moderate to advanced chronic small vessel i schemic change. No MRI evidence for a recent infarct.
--- NOTE | 2021-11-21 08:18 | MR ---
EXAMINATION TYPE: MR angio head wo/w con DATE OF EXAM: 11/21/2021 COMPARISON: Same-day MRI HISTORY: TIA, headache TECHNIQUE: Time of flight images focusing on the [place] were performed without and with IV contrast.. 2-D and 3-D postprocessing imaging is performed on the MRI scanner. Patient injected with 5 cc gadolinium. FINDINGS: There is dominant or larger caliber left vertebral artery. Vertebral arteries are patent to basilar junction. Tortuous course to the proximal basilar artery. Small caliber but patent bilateral posterior communicating arteries. No significant focal stenosis or aneurysm in the posterior circula tion. Images of the anterior circulation shows small caliber but patent anterior communicating artery. Ther e is no significant focal stenosis or aneurysm identified. IMPRESSION: No aneurysm at the level of the [place].
== END | disposition home or self-care (01) ==
LOC: RADMRIMAIN 06:25
PROVIDERS: ATTEND Family Medicine
DX: G45.9 Transient cerebral ischemic attack, unspecified (principal)
CPT/HCPCS: 70546; 70553; A9585

== ENCOUNTER → 2022-03-06 | Outpatient (CLI) | payer MEDICARE ==
[2022-03-06 14:00] LABS: African American GFR (CKD) >90 (>60 ml/min/1.73 sqM); Blood Urea Nitrogen 19 mg/dL (7-17); Non-African American GFR(CKD) 80 (>60 ml/min/1.73 sqM)
--- NOTE | 2022-03-06 14:44 | CT ---
Exam: CT Chest with contrast. Date: The 2022. Comparison: None History: Auto for ascending aortic aneurysm. Technique: CT examination of the chest was performed following the intravenous administration of 70 m L of Isovue-300. Coronal and sagittal reformats were performed. CT dose lowering techniques were use d, to include: automated exposure control, adjustment for patient size, and/or use of iterative recon struction. FINDINGS: Mediastinum and Makayla: There is no axillary, mediastinal or hilar lymphadenopathy. Pleural and Pericardial spaces: There are no pleural or pericardial effusions. Upper Abdomen: There are multiple calcified granulomas in the spleen. The visualized upper abdomen ot herwise appears unremarkable Cardiovascular: There is mild vascular calcification throughout the thoracic aorta with mild dilation of the ascending thoracic aorta up to 4 cm which is unchanged since the previous examination. No batsheva dence of aortic dissection is seen. Pulmonary Artery: There are no central pulmonary arterial abnormalities. The examination was not per formed to evaluate for pulmonary embolism. Lung Parenchyma and Airways: There is a new 1.2 cm left lower lobe soft tissue pulmonary nodule with some adjacent part solid nodularity distal to the nodule. This portion measures approximately 1.3 x 0 .8 cm. Bones: There is a healed overlapping left posterior lateral 10th rib fracture and healed posterior le ft 11th rib fracture. No acute fractures are seen. IMPRESSION: 1. Change 4 cm dilation of the ascending thoracic aorta. 2. New solid and part solid pulmonary nodule in the left lower lobe when compared to the previous exa mination. A PET CT and pulmonary consultation is recommended for further evaluation.
== END | disposition home or self-care (01) ==
LOC: RADCTMAIN 13:13
PROVIDERS: ATTEND Family Medicine
DX: I71.21 Aneurysm of the ascending aorta, without rupture (principal); R91.1 Solitary pulmonary nodule
CPT/HCPCS: 82565; 84520; 71260; 36415; Q9967

== ENCOUNTER → 2022-03-20 | Outpatient (CLI) | payer MEDICARE ==
--- NOTE | 2022-03-22 07:38 | PE ---
EXAMINATION TYPE: PET CT fusion skull to thigh DATE OF EXAM: 03/20/2022 CLINICAL INDICATION:Female, 86 years old with history of R911; TECHNIQUE: Following the intravenous administration of 9.16 mCi of F-18 FDG, whole body images are performed from the skull base to the midthigh. Images are reviewed on the computer in the coronal, a xial, and sagittal planes. Reconstructed rotating images are created on independent workstation and reviewed on the computer. A non-contrast CT is performed in conjunction with the PET scan. Glucose level 93 mg/dL COMPARISON: CT 03/06/2022, PET/CT None, FINDINGS: Mediastinal SUV mean is 1.4. Hepatic parenchyma SUV mean is 2.1. SKULL BASE AND NECK: No suspicious radiotracer activity. CHEST, MEDIASTINUM, AND HILAR REGION: * No suspicious radiotracer activity. * 8 mm pulmonary nodule in the left lower lobe max SUV 0.8. ABDOMEN AND PELVIS: No suspicious radiotracer activity. OSSEOUS STRUCTURES: No suspicious radiotracer activity. OTHER CT: Bilateral aphakia. Atherosclerosis of the arterial vasculature including the coronary arter ies. . Valve leaflet calcifications. Splenic calcified granulomas. Colonic diverticulosis. Left hip a rthroplasty with hardware in appropriate position. IMPRESSION: Pulmonary nodule in the left lower lobe does not demonstrate FDG activity above background levels. Co ntinued follow-up with CT is recommended in 3-6 months. No suspicious FDG activity within the neck, c hest, abdomen or pelvis.
== END | disposition home or self-care (01) ==
LOC: RADPETMAIN 13:30
PROVIDERS: ATTEND Family Medicine
DX: R91.1 Solitary pulmonary nodule (principal)
CPT/HCPCS: 78815; A9552

== ENCOUNTER → 2022-06-18 | Outpatient (CLI) | payer MEDICARE ==
--- NOTE | 2022-06-22 12:23 | US ---
EXAMINATION TYPE: US arterial LE single level DATE OF EXAM: 06/18/2022 2:02 PM CLINICAL INDICATION: Female, 86 years old with history of G57.92 unsp mononeuropathy left lower limb; History of: Smoker: No Hypertension: Yes Diabetic: No Hyperlipidemia: No TIA/CVA: Yes Previous Vascular Surgery: No CAD: No PA: No Vascular Ulcers: No Claudication: No Gangrene: No Doppler Waveforms: Right: Biphasic Left: Biphasic Unable to obtain waveforms bilateral CONTROLLED AREA CHECKER's Right Brachial Pressure: 190 Left Brachial Pressure: 188 Ankle-Brachial Indices: Right: 1.1 Left: 1.0 Toe Brachial Indices: Right: 0.64 Left: 0.67 IMPRESSION: Normal bilateral LAKSHMI and TBI values.
== END | disposition home or self-care (01) ==
LOC: RADUSWWP 13:05
PROVIDERS: ATTEND Family Medicine
DX: G57.92 Unspecified mononeuropathy of left lower limb (principal); I10 Essential (primary) hypertension
CPT/HCPCS: 93922

== ENCOUNTER → 2022-11-06 | Outpatient (CLI) | payer MEDICARE ==
--- NOTE | 2022-11-06 09:26 | CT ---
EXAMINATION TYPE: CT chest wo con DATE OF EXAM: 11/06/2022 COMPARISON: 03/06/2022 HISTORY: 87-year-old female h/o left side rib pain, and anterior chest pain [id number] TECHNIQUE: Contiguous axial scanning of the chest without contrast. Coronal/sagittal reconstructions performed. CT DLP: 97.1mGycm. Automatic exposure control utilized for a dose reduction. FINDINGS: Heart mildly enlarged without pericardial effusion. There is left atrial dilatation with mild aortic valvular calcifications. Mild aneurysm ascending aorta 4.1 cm redemonstrated. Mild to moderate atherosclerotic arch calcificat ions with conventional arch vessel branching anatomy. Large caliber to the main right and left pulmonary arteries measuring up to 2.7 cm suggesting underly ing pulmonary hypertension. No thoracic lymphadenopathy by CT size criteria. Mild emphysematous change. 4 mm lateral right upper lobe pulmonary nodule axial image 15 is unchanged. Mild biapical pleural-par enchymal scarring. Interstitial changes and stranding densities in the lower lungs with mild bibasila r bronchiolectasis. No consolidation or pleural effusion.. Visualized upper abdomen shows numerous calcified granulomas within the spleen. Dextroconvex curvature of the thoracic spine with dish within the mid and lower thoracic spine. Osteo penia. Old healed fracture deformity left posterior 10th rib. IMPRESSION: 1. Old healed fracture left posterior 10th rib. Dextroconvex scoliosis of the thoracic spine. DISH mi d and lower thoracic spine. 2. Mild emphysema and chronic bibasilar scarring with associated basilar bronchiolectasis. 3. Mild cardiomegaly with pulmonary arterial hypertension. 4. Similar mild aneurysm ascending aorta 4.1 cm.
== END | disposition home or self-care (01) ==
LOC: RADCTMAIN 08:01
PROVIDERS: ATTEND Family Medicine
DX: S22.32XA Fracture of one rib, left side, initial encounter for closed fracture (principal); I71.21 Aneurysm of the ascending aorta, without rupture; J43.9 Emphysema, unspecified; J98.4 Other disorders of lung; J47.9 Bronchiectasis, uncomplicated; I51.7 Cardiomegaly; I27.20 Pulmonary hypertension, unspecified
CPT/HCPCS: 71250

== ENCOUNTER → 2023-01-12 | Outpatient (CLI) | payer MEDICARE ==
--- NOTE | 2023-01-12 16:23 | FL ---
EXAMINATION TYPE: FL barium swallow w video DATE OF EXAM: 01/12/2023 CLINICAL HISTORY: 87-year-old female R1 3.10, dysphagia, recent choking episode with persistent sensa tion of food sticking. Dysphagia. TECHNIQUE: Deglutition study is performed utilizing thin liquid barium, barium thick applesauce, and barium coated cracker. Total fluoroscopy time: 1 minute 45 seconds. DOSE AREA PRODUCT (DAP) UGY*M,MGY*CM: 10 Total images: None. Real-time fluoroscopy support was provided to speech pathology. COMPARISON: None. FINDINGS: The oral and pharyngeal phases show satisfactory initiation and propagation with all modalities teste d. Normal mastication is seen with solid modalities tested. There is no evidence of penetration or aspiration with any modality tested. There is anterior endplate spondylosis at C5-C6 that results in impression on the posterior wall of the esophagus but without any obstruction. Minimal vallecular re siduals. IMPRESSION: Mild impression onto the posterior wall of the cervical esophagus at the C5-C6 level secondary to ant erior spurring from the spine. No obstruction. No penetration or aspiration. Please refer to speech therapist notes for further details if necessary.
== END | disposition home or self-care (01) ==
LOC: RADFLMAIN 10:28
PROVIDERS: ATTEND Otolaryngology
DX: K22.89 Other specified disease of esophagus (principal); R13.19 Other dysphagia
CPT/HCPCS: 74230

== ENCOUNTER → 2023-01-22 | Outpatient (CLI) | payer MEDICARE ==
--- NOTE | 2023-01-22 10:34 | FL ---
EXAMINATION TYPE: FL barium swallow DATE OF EXAM: 01/22/2023 10:30 AM COMPARISON: Chest radiograph from same day. CLINICAL INDICATION:Female, 87 years old with history of R13.19 OTHER DYSPHAGIA; PHH, TECHNIQUE: The procedure was explained and patient history elicited. All patient questions were ans wered prior to start of procedure. Multiple spot fluoroscopic images of the esophagus were obtained a fter the oral ingestion of effervescent crystals and liquid barium as the contrast agent. Fluoroscopic time: 47 seconds Fluoroscopic images:0 Radiographs taken: 108 DAP: 1038.91 mGym2 FINDINGS: The soft tissues is mildly patulous likely secondary to ingested crystals. Tertiary contractions with within the esophagus with mild retention of contrast. No evidence for reflux. The esophageal mucosa is smooth without evidence of focal stricture, ulceration, or abnormal outpouching. IMPRESSION: Esophageal dysmotility with small retention of contrast in the distal esophagus.
== END | disposition home or self-care (01) ==
LOC: RADUSWWP 09:28
PROVIDERS: ATTEND Otolaryngology
DX: K22.4 Dyskinesia of esophagus (principal)
CPT/HCPCS: 74220

== ENCOUNTER → 2023-04-20 | Outpatient (CLI) | payer MEDICARE ==
--- NOTE | 2023-04-20 12:41 | CT ---
EXAMINATION TYPE: CT soft tissue neck wo con DATE OF EXAM: 04/20/2023 COMPARISON: None HISTORY: DYSPHAGIA CT DLP: 309 mGycm CONTRAST: Patient injected with 0 mL of Isovue 300. TECHNIQUE: Axial images at 3 mm thick sections. Reconstructed images in the coronal plane and sagitt al plane are reviewed. FINDINGS: Limited CT sections are obtained the lung apices. The lung apices appear clear. CT neck: The torus tubarius and fossa of Rosenmuller are normal. M60A2 Armor Crewman spaces are normal. Para nasal sinuses and mastoid air cells are clear. Parotid glands appear normal and symmetrical. Submandibular glands, are normal. Parapharyngeal spac es are normal. There is a 1.0 cm lymph node at the level of the scot in the pretracheal space. No additional enlar ged adenopathy is evident within the mediastinum. A couple small lymph nodes are present within the m ediastinum and within the neck. The hypopharynx appears within normal limits. Vocal cord level appear symmetrical. Thyroid is atrophied. Osseous structures are normal. IMPRESSION: 1. 1 cm pretracheal lymph node. 2. No suspicious abnormality to account for dysphasia
== END | disposition home or self-care (01) ==
LOC: RADCTMAIN 11:54
PROVIDERS: ATTEND Family Medicine
DX: R59.1 Generalized enlarged lymph nodes (principal); R13.10 Dysphagia, unspecified
CPT/HCPCS: 70490

== ENCOUNTER → 2024-06-01 | Outpatient (CLI) | payer MEDICARE ==
--- NOTE | 2024-06-01 10:04 | BD ---
EXAMINATION TYPE: Axial Bone Density DATE OF EXAM: 06/01/2024 CLINICAL HISTORY: 88 years old Female. ICD-10 CODE: Z78.0 MENOPAUSAL , Additional History: Height: 58.5 Weight: 101 FRAX RISK QUESTIONS: History of Fracture in Adulthood: yes, multiple Secondary Osteoporosis: 3. Menopause before 45: yes RISK FACTORS HISTORY OF: Hip Fracture (Right/Left): yes, bilateral When: 2020 History of Wrist Fracture: yes, left When: about 2016 Surgery to Spine/Hip(right/left)/Wrist (right/left): right hip replacement, left hip hardware When: 2020 MEDICATIONS: EXAM MEASUREMENTS: Bone mineral densitometry was performed using the [employer] System. Bone mineral density as measured about the Lumbar spine is: ----- L1-L4(G/cm2): 0.728 T Score Values are as follows: ----- L1: -3.4 ----- L2: -4.3 ----- L3: -3.9 ----- L4: -3.6 ----- L1-L4: -3.8 Z Score Values are as follows: ----- L1: -0.7 ----- L2: -1.7 ----- L3: -1.3 ----- L4: -1.0 ----- L1-L4: -1.1 Bone mineral density has: Decreased -4.6% since study of: 01-27-2018 Limited study due to patient's health history FRAX%s: No FRAX available IMPRESSION: Osteoporosis (T Score less than -2.5). There is increased fracture risk and therapy is usually indicated based on age. Re-Screen 1-2 years. NOTE: T-SCORE=SD OF THE YOUNG ADULT MEAN. [facility], , 06/01/2024 10:02 AM
== END | disposition home or self-care (01) ==
LOC: RADBDWWP 08:31
PROVIDERS: ATTEND Family Medicine
DX: M81.0 Age-related osteoporosis without current pathological fracture (principal); Z78.0 Asymptomatic menopausal state
CPT/HCPCS: 77080

== ENCOUNTER → 2024-06-05 | Outpatient (CLI) | payer MEDICARE ==
--- NOTE | 2024-06-05 08:59 | MM ---
Reason for Exam: Clinical finding. Last mammogram was performed 11 year(s) and 0 month(s) ago. Patient History: Menarche at age 12. Patient has no children. Postmenopausal. Maternal aunt had breast cancer, age 75. Tissue Density: The breasts are heterogeneously dense, which may obscure small masses. Findings: Analyzed By CAD. There are some benign-appearing round and vascular calcifications bilaterally. No suspicious new mass or distortion bilaterally. Overall Assessment: Benign, BI-RAD 2 Management: Screening Mammogram of both breasts in 1 year. . Results were given to the patient verbally at the time of exam. Patient should continue monthly self-breast exams. A clinical breast exam by your physician is recommended on an annual basis. This exam should not preclude additional follow-up of suspicious palpable abnormalities. Note on Iliana scores and lifetime risk: 1. A Iliana score greater than 3% is considered moderate risk. If this is the case, consider specialist referral to assess eligibility for a risk reducing agent. 2. If overall lifetime risk for the development of breast cancer is 20% or higher, the patient may qualify for future screening with alternating mammogram and breast MRI. [facility], , 06/05/2024 8:56 AM. Electronically signed and approved by: Ari Azul M.D.
--- NOTE | 2024-06-05 09:22 | USB ---
Reason for Exam: Clinical finding. Patient History: Menarche at age 12. Patient has no children. Postmenopausal. Maternal aunt had breast cancer, age 75. Technique: Method: Targeted. Prior Study Comparison: 12/15/1994 Screening Mammogram, Unknown. 06/01/2008 Bilateral Screening Mammogram, [facility]. 06/26/2011 Bilateral Screening Mammogram, [facility]. 05/23/2013 Bilateral Screening Mammogram, [facility]. Findings: The area of palpable concern of the left breast, the axilla of the left breast and the retroareolar of the left breast were scanned. Targeted ultrasound shows shadowing rib at area of clinical concern. No suspicious solid or cystic mass or fluid collection is seen. Overall Assessment: Negative, BI-RAD 1 Management: Screening Mammogram of both breasts in 1 year. Return to routine follow-up. A clinical breast exam by your physician is recommended on an annual basis and results should be correlated with mammographic findings. This exam should not preclude additional follow-up of suspicious palpable abnormalities. Results were given to the patient verbally at the time of exam. [facility], , 06/05/2024 9:19 AM. Electronically signed and approved by: Ari Azul M.D.
== END | disposition home or self-care (01) ==
LOC: RADUSWWP 07:38
PROVIDERS: ATTEND Family Medicine
DX: N63.10 Unspecified lump in the right breast, unspecified quadrant (principal); N63.20 Unspecified lump in the left breast, unspecified quadrant; R92.333 Mammographic heterogeneous density, bilateral breasts; R92.1 Mammographic calcification found on diagnostic imaging of breast; Z78.0 Asymptomatic menopausal state; Z80.3 Family history of malignant neoplasm of breast
CPT/HCPCS: 77062; 77066

== ENCOUNTER → 2024-06-14 | Outpatient (CLI) | payer MEDICARE ==
--- NOTE | 2024-06-14 14:24 | NM ---
INDICATION: Patient age:Female; 88 years old; Reason for study: R22.42 PAIN IN LEFT LEG; PHH. COMPARISON: PET/CT 03/20/2022, left hip radiograph 06/24/2020. PROCEDURE: A 3 phase bone scan of the whole body was obtained following the IV administration of 25.4 mCi of [id number]. Body show focal regions were evaluated involving the pelvis, knees, feet, and ches t. FINDINGS: Single focus of radiotracer activity identified within the anterior right 10th rib. Additional focus identified within the mid thoracic spine at T9. These are only identified on delayed imaging. Focal r egion of radiotracer uptake identified within the left mid femur diaphysis extending into the proxima l femur on only the delayed imaging. There is a photopenic region within the central femur consistent with known intramedullary fixation hardware. There is increased uptake within the bilateral shoulder, bilateral wrists, bilateral knees, sternocla vicular, and sacroiliac joints consistent with degenerative changes. IMPRESSION: 1. Focal radiotracer uptake identified within the left mid femur at site of distal aspect of intramed ullary fixation hardware on delayed imaging. Raises concern for possible periprosthetic loosening. Re commend further evaluation with radiograph. 2. Focal radiotracer uptake identified within the T9 vertebral body likely representing degenerative disease. This can be likely further evaluated with radiographs as clinically indicated. 3. Focal radiotracer uptake identified within the anterior right 10th rib. Could be seen with a varie ty of etiologies including fracture. Correlate clinically and consider further evaluation of the radi ograph. [facility], , 06/14/2024 2:22 PM
== END | disposition home or self-care (01) ==
LOC: RADNMMAIN 06-07 07:06
PROVIDERS: ATTEND Family Medicine
DX: Z53.9 Procedure and treatment not carried out, unspecified reason (principal)
CPT/HCPCS: 78315

== ENCOUNTER → 2024-07-03 | Outpatient (CLI) | payer MEDICARE ==
--- NOTE | 2024-07-03 14:10 | CT ---
EXAMINATION TYPE: CT chest wo con CT DLP: 145.7 mGycm, Automated exposure control for dose reduction was used. DATE OF EXAM: 07/03/2024 1:53 PM COMPARISON: CT chest 11/06/2022, 03/06/2022, 10/11/2020, PET/CT 03/20/2022, CT chest abdomen 04/12/2019, C T chest abdomen and pelvis 11/15/2018 CLINICAL INDICATION:Female, 88 years old with history of M81.0 OSTEOPOROSIS R07.9 CHEST PAIN; PHH, ch est pain TECHNIQUE: Multiple axial images were obtained through the chest without IV contrast. Lack of IV or o ral contrast limits evaluation of solid and hollow organ viscera. . Coronal and sagittal reformats re viewed. FINDINGS: LUNGS/ PLEURA: No pleural effusion, pneumothorax, focal consolidation. Similar mild emphysema and chr onic bibasilar scarring with associated basilar bronchiolectasis. Stable right upper lobe 3.3 mm pulm onary nodule (series 4, image 16). No new suspicious pulmonary nodule or mass. AIRWAY: Patent and unremarkable.. HEART: Cardiomegaly is demonstrated.Mild to moderate aortic valvular calcifications. No pericardial e ffusion. Minimal coronary artery calcifications. MEDIASTINUM: No gross evidence of adenopathy. VASCULATURE: Marginal increase in size of ascending thoracic aortic aneurysm measuring up to 4.4 cm, previously 4.3 cm when measured with similar technique. Mild atherosclerotic calcification of the ao rta and its branches. MUSCULOSKELETAL: No acute osseous abnormalities. Dextroconvex curvature of the thoracic spine with DI SH within the mid to lower thoracic spine. Diffuse bone demineralization. Old healed fracture deformi ty left posterior 10th rib. SOFT TISSUES/LYMPH NODES: Unremarkable. LOWER NECK: No significant findings. UPPER ABDOMEN: Numerous calcified granulomas within the spleen. Cholelithiasis suggested. IMPRESSION: 1. No acute thoracic process. 2. Stable right upper lobe 3.3 mm pulmonary nodule for multiple prior exams. Considered benign. No fo llow-up recommended. No new or enlarging pulmonary nodules. 3. Similar mild emphysema and chronic bibasilar scarring with associated basilar bronchiolectasis. 4. Marginal increase in size of ascending thoracic aortic aneurysm measuring 4.4 cm. [facility], , 07/03/2024 2:08 PM
== END | disposition home or self-care (01) ==
LOC: RADCTMAIN 12:47
PROVIDERS: ATTEND Family Medicine
DX: R91.1 Solitary pulmonary nodule (principal); M81.0 Age-related osteoporosis without current pathological fracture; J43.9 Emphysema, unspecified; J47.9 Bronchiectasis, uncomplicated; I71.21 Aneurysm of the ascending aorta, without rupture
CPT/HCPCS: 71250